=== PATIENT | male | born 1955 | race Caucasian/White ===

== ENCOUNTER → 2017-09-04 | Outpatient (CLI) | payer OTHER ==
[~2017-09-04] MED LIST: ASCO500T3 PO; ATOR-26 PO; CALC-393 PO; CITA40TA4 PO; CODCAP4 PO; MISC1CAP60 PO; NAPR-1169 PO; [UNRECOGNIZED DRUG - CODE] PO
--- NOTE | 2017-09-04 11:03 | DIAGNOSTIC IMAGING REPORT ---
CHEST 2 VIEWS ROUTINE CLINICAL HISTORY: M79.89 Leg [id number] COPD (chronic obstructive pulmonary dis COMPARISON STUDY: 05/31/2016 FINDINGS: Mild chronic interstitial fibrotic change. No focal infiltrate. No significant cardiac enlargement. IMPRESSION: Mild chronic interstitial change. No acute process. The above report was generated using voice recognition software. It may contain grammatical, syntax or spelling errors. Electronically signed by: Lico Eldridge M.D. 09/04/2017 11:02 AM Dictated Date/Time: 09/04/2017 11:01 AM
== END | disposition home or self-care (01) ==
LOC: C.RAD1850 10:51
PROVIDERS: ATTEND Internal Medicine Pulmonary Disease
DX: M79.89 Other specified soft tissue disorders (principal); J44.9 Chronic obstructive pulmonary disease, unspecified

== ENCOUNTER → 2017-11-11 | Outpatient (CLI) | payer OTHER ==
[2017-11-11 12:08] LABS: BASO % 0.5 %; BASO ABS # 0.04 K/uL (0-0.2); EOS % 3.1 %; EOS ABS # 0.24 K/uL (0-0.5); HEMATOCRIT 41.2 % (42-52); HEMOGLOBIN 14.2 g/dL (14.0-18.0); IG# 0.01 K/uL (0.00-0.02); LYMPH % 23.2 %; LYMPH ABS # 1.78 K/uL (1.2-3.4); MEAN CELL VOLUME 92.4 fL (80-100); MEAN CORPUSCULAR HEMOGLOBIN 31.8 pg (25-34); MEAN CORPUSCULAR HGB CONC 34.5 g/dl (32-36); MEAN PLATELET VOLUME 9.3 fL (7.4-10.4); MONO % 8.5 %; MONO ABS # 0.65 K/uL (0.11-0.59); NEUT % 64.6 %; NEUT ABS # 4.96 K/uL (1.4-6.5); PLATELET COUNT 260 K/uL (130-400); RED CELL DISTRIBUTION WIDTH CV 13.5 % (11.5-14.5); RED CELL DISTRIBUTION WIDTH SD 45.6 fL (36.4-46.3); WHITE BLOOD COUNT 7.68 K/uL (4.8-10.8)
[2017-11-11 12:19] LABS: PTT PATIENT 27.1 SECONDS (21.0-31.0)
[2017-11-11 12:38] LABS: ALBUMIN 3.8 gm/dl (3.4-5.0); ALT/SGPT 35 U/L (12-78); BLOOD UREA NITROGEN 21 mg/dl (7-18); CALCIUM 9.2 mg/dl (8.5-10.1); CARBON DIOXIDE 29 mmol/L (21-32); GLUCOSE 97 mg/dl (70-99); POTASSIUM 4.5 mmol/L (3.5-5.1); SODIUM 136 mmol/L (136-145)
[2017-11-11 12:41] LABS: ALKALINE PHOSPHATASE 103 U/L (45-117); AST/SGOT 28 U/L (15-37); TOTAL PROTEIN 7.7 gm/dl (6.4-8.2)
== END | disposition home or self-care (01) ==
LOC: C.LAB1850 10:55
PROVIDERS: ATTEND Internal Medicine Pulmonary Disease
DX: J44.9 Chronic obstructive pulmonary disease, unspecified (principal)

== ENCOUNTER 2018-09-07 14:19 | Inpatient (IN) ==
[2018-09-07] MEDS ORDERED: MoRPHine SULFATE 4 MG/ML 1 ML CARP\\VIAL ONE (14:30)
[2018-09-07] MEDS ORDERED: MoRPHine SULFATE 4 MG/ML 1 ML CARP\\VIAL IV STA ×2 (14:32→15:17)
[2018-09-07] MEDS ORDERED: ADENOSINE IV SOLN 3 MG/ML 2 ML VIAL IV ONE (14:39)
[2018-09-07] MEDS ORDERED: SODIUM CHLORIDE 0.9% 500 ML IV SCH (14:45)
[2018-09-07] MEDS ORDERED: fentaNYL citrate 100 MCG/2 ML VIAL IV STA (14:48)
[2018-09-07] MEDS: ADENOSINE IV SOLN 3 MG/ML 2 ML VIAL IV STA ×2 (14:48→14:49)
[2018-09-07 14:49] LABS: Basophils # (auto) 0.03 K/uL (0-0.2); Basophils % (auto) 0.2 %; Eosinophils # (auto) 0.01 K/uL (0-0.5); Eosinophils % (auto) 0.1 %; Hematocrit (blood only) 43.3 % (42-52); Immature Granulocytes # (auto) 0.04 K/uL (0.00-0.02); Immature Granulocytes % (auto) 0.3 %; Lymphocytes # (auto) 3.18 K/uL (1.2-3.4); Lymphocytes % (auto) 26.3 %; Mean Corpuscular Hgb Conc 34.6 g/dL (32-36); Mean Corpuscular Volume 94.1 fL (80-100); Mean Platelet Volume 9.4 fL (7.4-10.4); Monocytes # (auto) 1.03 K/uL (0.11-0.59); Monocytes % (auto) 8.5 %; Neutrophils # (auto) 7.78 K/uL (1.4-6.5); Neutrophils % (auto) 64.6 %; Platelet Count 289 K/uL (130-400); RDW Coefficient of Variation 13.7 % (11.5-14.5); RDW Standard Deviation 47.3 fL (36.4-46.3); White Blood Count 12.07 K/uL (4.8-10.8)
[2018-09-07 14:57] LABS: Partial Thromboplastin Ratio 0.9; Partial Thromboplastin Time 22.6 Seconds (21.0-31.0); Prothrombin Time 10.1 Seconds (9.0-12.0)
[2018-09-07 15:04] LABS: Alanine Aminotransferase 40 U/L (12-78); Albumin Level 4.2 gm/dl (3.4-5.0); Aspartate Aminotransferase 35 U/L (15-37); BUN Creatinine Ratio 18.1 (10-20); Blood Urea Nitrogen 24 mg/dl (7-18); Calcium 9.6 mg/dl (8.5-10.1); Carbon Dioxide 28 mmol/L (21-32); Chloride 101 mmol/L (98-107); Creatinine Clr Calc Pharmacy 61.4 ml/min; Est GFR (African American) 67.5; Est GFR (Non-African American) 58.2; Glucose 93 mg/dl (70-99); Magnesium 2.1 mg/dl (1.8-2.4); Potassium 4.3 mmol/L (3.5-5.1); Sodium 135 mmol/L (136-145)
--- NOTE | 2018-09-07 15:10 | XRay Report ---
XR hip LT 2-3V w pelvis CLINICAL HISTORY: 62 years-old Male presenting with fall, pain, ?left hip. TECHNIQUE: Single frontal view of the pelvis and frontal and crosstable lateral views of the left hip were obtained. COMPARISON: CT of the abdomen and pelvis from 11/16/2010. FINDINGS: Intertrochanteric fracture of the left femur with up to 6 mm of diastases at the fracture plane. Disp laced lesser trochanteric fracture fragment, which demonstrates 2.8 cm of proximal displacement. The left femoral head remains congruent in the acetabulum. Bony pelvis intact. Right hip joint and right femoral neck grossly intact. IMPRESSION: Intertrochanteric left femur fracture. Electronically signed by: Jun Tran M.D. 09/07/2018 3:09 PM
[2018-09-07 15:13] LABS: Albumin Globulin Ratio 1.1 (0.9-2); Alkaline Phosphatase 111 U/L (45-117); Bilirubin,Total 0.5 mg/dl (0.2-1); Globulin 3.9 gm/dl (2.5-4.0); Total Protein 8.1 gm/dl (6.4-8.2); Troponin I < 0.015 ng/ml (0-0.045)
--- NOTE | 2018-09-07 15:13 | XRay Report ---
XR chest 1V portable CLINICAL HISTORY: 62 years-old Male presenting with fall, tachy. TECHNIQUE: Portable supine AP view of the chest was obtained. COMPARISON: 09/04/[address] from 11/24/2017. FINDINGS: Cardiomediastinal silhouette normal. Lungs are mildly hyperinflated. No focal opacity. No pleural eff usion or pneumothorax. Old posterior lateral left rib fractures again noted. No convincing displaced acute rib fracture. Upper abdomen normal. IMPRESSION: 1. Findings suggest emphysema. No focal infiltrate to suggest pneumonia. Electronically signed by: Jun Tran M.D. 09/07/2018 3:12 PM
[2018-09-07] MEDS ORDERED: HYDROmorphone INJ 0.5 MG/0.5 ML SYR IV STA (15:26)
--- NOTE | 2018-09-07 15:41 | Emergency Department Note ---
Entered by Keyon Christianson acting as a scribe for Castro Noe M.D. History of Present Illness General Chief complaint: Fall Time Seen by Provider: 09/07/18 14:20 Source: patient Mode of arrival: EMS History of Present Illness Provider complaint: hip pain Onset (ago): day(s) (today) Location: hip and left Pain Consistency: + other (fall) Maximum Pain Intensity: 10 Current Pain Intensity: 10 Quality: + other (pain) Associated symptoms: + denies other symptoms (pain elsewhere); no chest pain and no nausea/vomiting (-nausea) The patient is a 62 year old male who presents to the Emergency Room via EMS with complaints of left hip pain secondary to a fall prior to arrival. Per EMS, the patient slipped on ice in a parking lot and landed directly on his left hip. EMS also reports that the patient was not able to dorsiflex his left foot into their hand. The patient denies hitting his head during the fall and denies pain anywhere else. The patient denies any chest pain or dizziness currently as well as prior to his fall. He denies any prior history of breaking his left hip , but admits to breaking his left knee. The patient reports a history of a spinal stenosis, but denies any heart history or use of blood thinners. The patient denies any current nausea. He reports that he has had bronchitis on and off recently and has been on steroids for the past 6 days. The patient admits to being a dormer smoker, but states he quit over 10 years ago. The patient also admits to occasional alcohol use, but states he has not drank in over a month. He also denies any recent travel. Home Medications Home Medications Medication Instructions Recorded Confirmed Type albuterol sulfate [Ventolin HFA] 2 puff INHALATION Q4H PRN 09/07/18 09/07/18 History ascorbic acid (vitamin C) [Vitamin 500 mg PO QAM 09/07/18 09/07/18 History C] atorvastatin 40 mg PO HS 09/07/18 09/07/18 History azithromycin [Zithromax Z-Scout] 250 mg PO QAM 09/07/18 09/07/18 History budesonide 1 mg INHALATION BID 09/07/18 09/07/18 History budesonide-formoterol [Symbicort] 2 puff INHALATION QAM 09/07/18 09/07/18 History citalopram 20 mg PO QAM 09/07/18 09/07/18 History cod liver oil 2 cap PO QAM 09/07/18 09/07/18 History ferrous sulfate 325 mg PO QAM 09/07/18 09/07/18 History ibuprofen 400 mg PO QAM 09/07/18 09/07/18 History ipratropium-albuterol 3 ml INHALATION QID 09/07/18 09/07/18 History methylprednisolone 4 mg PO QAM 09/07/18 09/07/18 History multivitamin 1 tab PO QAM 09/07/18 09/07/18 History nortriptyline 25 mg PO HS 09/07/18 09/07/18 History potassium chloride 20 meq PO QAM 09/07/18 09/07/18 History saw palmetto 1,000 mg PO QAM 09/07/18 09/07/18 History tiotropium bromide [Spiriva 2 puff INHALATION QAM 09/07/18 09/07/18 History Respimat] Allergies Allergy/AdvReac Type Severity Reaction Status Date / Time No Known Allergies Allergy Unknown Verified 09/07/18 15:14 Past Med/Surg History Medical History Anxiety COPD (chronic obstructive pulmonary disease) Hyperlipidemia Surgical History S/P appendectomy 2011 Family History Father Hypertension Social History Feels Safe at Home: Yes Smoking Status: Former smoker Preferred Language: Argentine Review of Systems See HPI for pertinent positives & negatives. and A total of 10 systems reviewed and were otherwise negative Physical Exam Vital Signs Vital Signs - 24 hr 09/07/18 14:15 09/07/18 14:25 09/07/18 15:00 Temperature 36.5 C Temperature Source Oral Sepsis Recent Fever Within 48 Hours No Sepsis New/Unexplained Change in Mental Status No Sepsis Action Taken by Nursing No Action Required Pulse Rate 187 H 109 H Pulse Rate [Apical] 102 H Pulse Rhythm [Apical] Regular Pulse Strength [Apical] Normal Respiratory Rate 26 H 18 Respiratory Effort / Characteristics Non-Labored Spontaneous Respiratory Depth Normal Respiratory Pattern Regular Blood Pressure 149/94 H Blood Pressure [Right Arm] 136/107 H Blood Pressure Mean 112 Blood Pressure Mean [Right Arm] 116 Blood Pressure Position [Right Arm] Lying Pulse Oximetry 96 98 100 Oxygen Delivery Method Nasal Cannula Room Air Oxygen Flow Rate 2 09/07/18 15:01 09/07/18 15:21 09/07/18 15:30 Temperature Temperature Source Sepsis Recent Fever Within 48 Hours Sepsis New/Unexplained Change in Mental Status Sepsis Action Taken by Nursing Pulse Rate 109 H 95 H Pulse Rate [Apical] 101 H Pulse Rhythm [Apical] Regular Pulse Strength [Apical] Normal Respiratory Rate 16 Respiratory Effort / Characteristics Non-Labored Spontaneous Respiratory Depth Normal Respiratory Pattern Blood Pressure 136/107 H 131/83 Blood Pressure [Right Arm] 136/107 H Blood Pressure Mean 116 99 Blood Pressure Mean [Right Arm] 116 Blood Pressure Position [Right Arm] Pulse Oximetry 100 95 99 Oxygen Delivery Method Nasal Cannula Oxygen Flow Rate 2 09/07/18 16:00 09/07/18 16:01 09/07/18 16:30 Temperature Temperature Source Sepsis Recent Fever Within 48 Hours Sepsis New/Unexplained Change in Mental Status Sepsis Action Taken by Nursing Pulse Rate 102 H 100 H 102 H Pulse Rate [Apical] Pulse Rhythm [Apical] Pulse Strength [Apical] Respiratory Rate Respiratory Effort / Characteristics Respiratory Depth Respiratory Pattern Blood Pressure 123/78 119/85 Blood Pressure [Right Arm] Blood Pressure Mean 93 96 Blood Pressure Mean [Right Arm] Blood Pressure Position [Right Arm] Pulse Oximetry 96 93 96 Oxygen Delivery Method Oxygen Flow Rate 09/07/18 17:00 09/07/18 17:01 09/07/18 17:02 Temperature Temperature Source Sepsis Recent Fever Within 48 Hours Sepsis New/Unexplained Change in Mental Status Sepsis Action Taken by Nursing Pulse Rate 101 H 98 H 100 H Pulse Rate [Apical] Pulse Rhythm [Apical] Pulse Strength [Apical] Respiratory Rate Respiratory Effort / Characteristics Respiratory Depth Respiratory Pattern Blood Pressure 101/72 Blood Pressure [Right Arm] Blood Pressure Mean 81 Blood Pressure Mean [Right Arm] Blood Pressure Position [Right Arm] Pulse Oximetry 94 93 95 Oxygen Delivery Method Oxygen Flow Rate 09/07/18 17:30 09/07/18 18:00 09/07/18 18:03 Temperature Temperature Source Sepsis Recent Fever Within 48 Hours Sepsis New/Unexplained Change in Mental Status Sepsis Action Taken by Nursing Pulse Rate 97 H 94 H 98 H Pulse Rate [Apical] Pulse Rhythm [Apical] Pulse Strength [Apical] Respiratory Rate 16 Respiratory Effort / Characteristics Respiratory Depth Respiratory Pattern Blood Pressure 94/63 L 112/68 Blood Pressure [Right Arm] Blood Pressure Mean 73 82 Blood Pressure Mean [Right Arm] Blood Pressure Position [Right Arm] Pulse Oximetry 94 95 Oxygen Delivery Method Oxygen Flow Rate GENERAL: Awake, alert, appears uncomfortable. HENT: Normocephalic, atraumatic. EYES: Normal conjunctiva. Sclera non-icteric. NECK: Supple. No nuchal rigidity. RESPIRATORY: Clear to auscultation. No wheezes. Normal respiratory effort. CARDIAC: Tachycardic. Normal rhythm. Extremities warm and well perfused. GI: Soft, non-distended. No tenderness to palpation. No rebound or guarding. RECTAL: Deferred. MUSCULOSKELETAL: Atraumatic. Chest examination reveals no tenderness. There is no CVA tenderness to palpation. LOWER EXTREMITIES: Calves are equal size bilaterally. No edema. Significant left hip pain and tenderness - externally rotated. Intact lower distal sensation , 2+ DP pulse. NEURO: Normal sensorium. No sensory or motor deficits noted. No facial droop. SKIN: Warm and dry. No rash or jaundice noted. Course 1419: Past medical records reviewed. The patient was evaluated in room B7, and a complete history and physical examination were performed. 1438: Adenosine was administered to the patient in order to obtain a second EKG. [facility]. 1529: I reviewed the patient's case with Dr. Ulloa [facility]. He will evaluate the patient for further management. 1642: I reviewed the patient's case with Dr. Carbone [facility]. Consultations [facility] Time: 15:29 Administered Medications Discontinued Medications Adenosine (Adenosine) 6 mg IV NOW STA Stop: 09/07/18 14:40 Last Admin: 09/07/18 14:48 Dose: 6 mg Hydromorphone HCl (Dilaudid) 0.5 mg IV NOW STA Stop: 09/07/18 15:27 Last Admin: 09/07/18 15:29 Dose: 0.5 mg Sodium Chloride (Nss) 500 mls @ 999 mls/hr IV .Q31M VICENTE Stop: 09/07/18 15:15 Last Infusion: 09/07/18 15:21 Dose: 0 mls/hr Admin: 09/07/18 14:49 Dose: 999 mls/hr Morphine Sulfate (Morphine Sulfate) Confirm Administered Dose 4 mg .ROUTE .STK- MED ONE Stop: 09/07/18 14:31 Last Admin: 09/07/18 14:48 Dose: 4 mg Morphine Sulfate (Morphine Sulfate) 4 mg IV NOW STA Stop: 09/07/18 14:33 Last Admin: 09/07/18 14:53 Dose: 4 mg Morphine Sulfate (Morphine Sulfate) 4 mg IV NOW STA Stop: 09/07/18 15:18 Last Admin: 09/07/18 15:20 Dose: Not Given Medical Decision Making Differential Diagnosis Differential diagnosis: Etiologies such as premature contractions, electrolyte abnormality, cardiac dysrhythmia, thyroid dysfunction, pulmonary embolism, infection, gastrointestinalfracture, dislocation, intra-abdominal, pneumothorax, intrathoracic , intracranial, neurologic, as well as other traumatic pathologies were entertained Medical Records Attestation: I reviewed the patient's medical records. Home Medications Current Medication List: was personally reviewed by me Laboratory Data Attestation: I reviewed the patient's lab results. Result diagrams: 09/07/18 14:35 09/07/18 14:35 Lab Results 09/07/18 09/07/18 09/07/18 Range/Units 14:35 14:35 14:35 WBC 12.07 H (4.8-10.8) K/uL RBC 4.60 L (4.7-6.1) M/uL Hgb 15.0 (14.0-18.0) g/dL Hct 43.3 (42-52) % MCV 94.1 (80-100) fL MCH 32.6 (25-34) pg MCHC 34.6 (32-36) g/dL RDW Std Deviation 47.3 H (36.4-46.3) fL RDW Coeff of Damon 13.7 (11.5-14.5) % Plt Count 289 (130-400) K/uL MPV 9.4 (7.4-10.4) fL Immature Gran % (Auto) 0.3 % Neut % (Auto) 64.6 % Lymph % (Auto) 26.3 % [place] % (Auto) 8.5 % Eos % (Auto) 0.1 % Baso % (Auto) 0.2 % Immature Gran # (Auto) 0.04 H (0.00-0.02) K/uL Neut # (Auto) 7.78 H (1.4-6.5) K/uL Lymph # (Auto) 3.18 (1.2-3.4) K/uL [place] # (Auto) 1.03 H (0.11-0.59) K/uL Eos # (Auto) 0.01 (0-0.5) K/uL Baso # (Auto) 0.03 (0-0.2) K/uL PT 10.1 (9.0-12.0) Seconds INR 1.0 (0.9-1.1) APTT 22.6 (21.0-31.0) Seconds PTT Ratio 0.9 Sodium 135 L (136-145) mmol/L Potassium 4.3 (3.5-5.1) mmol/L Chloride 101 (98-107) mmol/L Carbon Dioxide 28 (21-32) mmol/L Anion Gap 6.0 (3-11) BUN 24 H (7-18) mg/dl Creatinine 1.32 (0.6-1.4) mg/dl Est Cr Clr Drug Dosing 61.4 ml/min Est GFR ( Amer) 67.5 Est GFR (Non-Af Amer) 58.2 BUN/Creatinine Ratio 18.1 (10-20) Glucose 93 (70-99) mg/dl Calcium 9.6 (8.5-10.1) mg/dl Magnesium 2.1 (1.8-2.4) mg/dl Total Bilirubin 0.5 (0.2-1) mg/dl AST 35 (15-37) U/L ALT 40 (12-78) U/L Alkaline Phosphatase 111 (45-117) U/L Troponin I < 0.015 (0-0.045) ng/ml Total Protein 8.1 (6.4-8.2) gm/dl Albumin 4.2 (3.4-5.0) gm/dl Globulin 3.9 (2.5-4.0) gm/dl Albumin/Globulin Ratio 1.1 (0.9-2) TSH 1.210 (0.300-4.500) uIu/ml Blood Type Antibody Screen 09/07/18 Range/Units 14:35 WBC (4.8-10.8) K/uL RBC (4.7-6.1) M/uL Hgb (14.0-18.0) g/dL Hct (42-52) % MCV (80-100) fL MCH (25-34) pg MCHC (32-36) g/dL RDW Std Deviation (36.4-46.3) fL RDW Coeff of Damon (11.5-14.5) % Plt Count (130-400) K/uL MPV (7.4-10.4) fL Immature Gran % (Auto) % Neut % (Auto) % Lymph % (Auto) % [place] % (Auto) % Eos % (Auto) % Baso % (Auto) % Immature Gran # (Auto) (0.00-0.02) K/uL Neut # (Auto) (1.4-6.5) K/uL Lymph # (Auto) (1.2-3.4) K/uL [place] # (Auto) (0.11-0.59) K/uL Eos # (Auto) (0-0.5) K/uL Baso # (Auto) (0-0.2) K/uL PT (9.0-12.0) Seconds INR (0.9-1.1) APTT (21.0-31.0) Seconds PTT Ratio Sodium (136-145) mmol/L Potassium (3.5-5.1) mmol/L Chloride (98-107) mmol/L Carbon Dioxide (21-32) mmol/L Anion Gap (3-11) BUN (7-18) mg/dl Creatinine (0.6-1.4) mg/dl Est Cr Clr Drug Dosing ml/min Est GFR ( Amer) Est GFR (Non-Af Amer) BUN/Creatinine Ratio (10-20) Glucose (70-99) mg/dl Calcium (8.5-10.1) mg/dl Magnesium (1.8-2.4) mg/dl Total Bilirubin (0.2-1) mg/dl AST (15-37) U/L ALT (12-78) U/L Alkaline Phosphatase (45-117) U/L Troponin I (0-0.045) ng/ml Total Protein (6.4-8.2) gm/dl Albumin (3.4-5.0) gm/dl Globulin (2.5-4.0) gm/dl Albumin/Globulin Ratio (0.9-2) TSH (0.300-4.500) uIu/ml Blood Type O Positive Antibody Screen NEGATIVE Imaging Data Radiologist's Impression: Radiology results as stated below per my review and the radiologist's interpretation: XR chest 1V portable CLINICAL HISTORY: 62 years-old Male presenting with fall, tachy. TECHNIQUE: Portable supine AP view of the chest was obtained. COMPARISON: 09/04/[address] from 11/24/2017. FINDINGS: Cardiomediastinal silhouette normal. Lungs are mildly hyperinflated. No focal opacity. No pleural effusion or pneumothorax. Old posterior lateral left rib fractures again noted. No convincing displaced acute rib fracture. Upper abdomen normal. IMPRESSION: 1. Findings suggest emphysema. No focal infiltrate to suggest pneumonia. Electronically signed by: Jun Tran M.D. 09/07/2018 3:12 PM XR hip LT 2-3V w pelvis CLINICAL HISTORY: 62 years-old Male presenting with fall, pain, ?left hip. TECHNIQUE: Single frontal view of the pelvis and frontal and crosstable lateral views of the left hip were obtained. COMPARISON: CT of the abdomen and pelvis from 11/16/2010. FINDINGS: Intertrochanteric fracture of the left femur with up to 6 mm of diastases at the fracture plane. Displaced lesser trochanteric fracture fragment, which demonstrates 2.8 cm of proximal displacement. The left femoral head remains congruent in the acetabulum. Bony pelvis intact. Right hip joint and right femoral neck grossly intact. IMPRESSION: Intertrochanteric left femur fracture. Electronically signed by: Jun Tran M.D. 09/07/2018 3:09 PM ECG Data Attestation: I personally reviewed and interpreted this ECG as follows: Indication: tachycardia Rate (beats per minute): 178 Rhythm: SVT Findings: + nonspecific-ST abn and + PVC; no ST elevation Additional Comments: ECG #2: Sinus rhythm, rate of 88 ECG #3 Sinus tachycardia, rate of 116 Blood Pressure Blood Pressure Findings: Elevated blood pressure Blood Pressure Disposition: elevated BP felt to be situational MDM Narrative 63-year-old gentleman presenting via EMS after a fall today at work. Does have a history of hyperlipidemia but no use of blood thinners or antiplatelets. Complaining of pain predominantly left hip rating to the left mid thigh. Denies pain in his knee ankle or lower leg. Denies striking his head. Recently on treatment for bronchitis with Medrol Dosepak and azithromycin. Noted to be extremely tachycardic upon arrival and appears to be SVT on initial EKG. Pain medicine given and vagal maneuvers attempted without significant change in the heart rate. No significant cardiac history or chest pain reported. Blood pressure is stable. Discussed with the patient and verbal consent to proceed with a Adenosine for further differentiation appears to be sinus tach and after 6 mg transition to a sinus tachycardia. Unsure if is secondary to his recent steroids for bronchitis and the pain as he has no history. Troponin completed. Doubt this is PE. Denies any presyncopal episode. X-rays obtained basic labs were completed showing a left intertrochanteric hip fracture. No evidence of pneumonia. No significant laboratory abnormality with a negative troponin and normal TSH. Wonder if his pain caused him to go into the SVT. Given some doses of IV morphine and Dilaudid here. No recurrence of SVT while in the department and again a negative troponin. Placed a call to orthopedics and the hospitalist for admission for repair of his hip fracture. Impression & Plan Closed fracture of left hip, Sustained SVT, Fall Discharge Plan Visit Data Chief Complaint: Fall Other Complaint: Leg Injury/Pain ED Provider: Castro Noe Discharge Problem: Closed fracture of left hip, Sustained SVT, Fall Patient Disposition: Admitted As Inpatient Discharge Instructions Interventions: ED Discharge Assessment Last Done: 09/07/18 18:03 The brown's documentation has been prepared under my direction and personally reviewed by me in its entirety. I confirm that the note above accurately reflects all work, treatment, procedures, and medical decision making performed by me.
--- NOTE | 2018-09-07 17:58 | History & Physical Report ---
Date of Service September 07, 2018 Assessment & Plan (1) Closed left femoral fracture: Due to mechanical fall. No concern for syncope or loss of consciousness. De Jenna-operative risk of MACE is 0.6% using ASA Class 3. Prior to injury, he had good exercise tolerance without any concerning cardiac symptoms ( lightheadedness, chest pain). He has had anesthesia without complications in the past. No prior RBC transfusions. Is on the tail end of a mild COPD exacerbation, but lungs sound clear without wheezing and with good air movement. From an internal medicine standpoint, he is cleared for surgery. - Orthopedics consult - Pain control - NPO @ midnight in case of surgery (2) SVT (supraventricular tachycardia): Had episode of SVT on admission which was broken with adenosine. Possibly caused by high adrenergic state from broken hip. No prior history of SVTs. - Telemetry - If recurs, will get cardiology consult (3) COPD (chronic obstructive pulmonary disease): No known PFTs. Is on the tail end of a mild COPD exacerbation. - Continue home inhalers - Continue 1 final day of steroids and antibiotics (4) Leukocytosis: Mild. Likely due to steroids and mild leukemoid reaction from fracture. No focal signs/symptoms of infection. - Monitor (5) CKD (chronic kidney disease) stage 2, GFR 60-89 ml/min: Baseline Cr appears to be ~1.2-1.3 with GFR ~60. - Monitor Cr while inpatient - Renally-dose meds (6) Anxiety: No current issues. - Continue home citalopram and nortriptyline (technically this is for chronic back pain) (7) Hyperlipidemia: - Continue home statin (8) DVT prophylaxis: SCDs - Until after surgery History of Present Illness Primary Care Provider: Neto Herrera 62yo M w/ hx of COPD who presents for left broken hip. Patient was in his usual state of health apart from a mild COPD exacerbation when he fell on some ice at work and sustained a left intertrochanteic femur fracture. Per patient, he did not have any prodrome, dizziness, or other symptoms and just slipped. He was taking small steps, but still wasn't able to catch himself and had immediate pain on impact. A coworker called the ambulance. He reports he has had some extra sputum production in the last week, and has been on a course of azithromycin and steroids. He is on day 6 for this. Otherwise, is in his normal state of health and denies fevers/chills, chest pain , shortness of breath, abdominal pain, nausea, or vomiting. Allergies Allergy/AdvReac Type Severity Reaction Status Date / Time No Known Allergies Allergy Unknown Verified 09/07/18 15:14 Home Medications Home Medications Medication Instructions Recorded Confirmed Type albuterol sulfate [Ventolin HFA] 2 puff INHALATION Q4H PRN 09/07/18 09/07/18 History ascorbic acid (vitamin C) [Vitamin 500 mg PO QAM 09/07/18 09/07/18 History C] atorvastatin 40 mg PO HS 09/07/18 09/07/18 History azithromycin [Zithromax Z-Scout] 250 mg PO QAM 09/07/18 09/07/18 History budesonide 1 mg INHALATION BID 09/07/18 09/07/18 History budesonide-formoterol [Symbicort] 2 puff INHALATION QA 09/07/18 09/07/18 History citalopram 20 mg PO QAM 09/07/18 09/07/18 History cod liver oil 2 cap PO QAM 09/07/18 09/07/18 History ferrous sulfate 325 mg PO QAM 09/07/18 09/07/18 History ibuprofen 400 mg PO QAM 09/07/18 09/07/18 History ipratropium-albuterol 3 ml INHALATION QID 09/07/18 09/07/18 History methylprednisolone 4 mg PO QAM 09/07/18 09/07/18 History multivitamin 1 tab PO QAM 09/07/18 09/07/18 History nortriptyline 25 mg PO 09/07/18 09/07/18 History potassium chloride 20 meq PO QAM 09/07/18 09/07/18 History saw palmetto 1,000 mg PO QAM 09/07/18 09/07/18 History tiotropium bromide [Spiriva 2 puff INHALATION QAM 09/07/18 09/07/18 History Respimat] Past Med/Surg History Medical History Anxiety COPD (chronic obstructive pulmonary disease) Hyperlipidemia Surgical History S/P appendectomy 2011 Family History Father Hypertension Social History Feels Safe at Home: Yes Smoking Status: Former smoker Preferred Language: Persian Review of Systems Constitutional: no fever, no chills and no sweats Eyes: no diplopia Ear, Nose, Mouth, Throat: no ear trauma, no nasal discharge and no dental pain Respiratory: no cough, no chest congestion and no dyspnea Cardiovascular: no chest pain, no dyspnea on exertion, no palpitations and no syncope Gastrointestinal: no abdominal pain, no belching, no constipation, no diarrhea/ loose stools, no blood in stools and no melena Musculoskeletal: + joint pain (Left hip); no back pain and no muscle weakness Integumentary: no rash, no skin ulcer and no erythema Neurologic: no generalized weakness, no loss of sensation, no numbness and no paresthesia Psychiatric: no depression and no anxiety Endocrine: no fatigue, no polydipsia and no polyphagia Physical Exam 2 Vital Signs (Past 24 Hours): Last Vital Signs Temp 36.5 C 09/07/18 14:15 Pulse 98 H 09/07/18 17:01 Resp 16 09/07/18 15:21 BP 101/72 09/07/18 17:01 Pulse Ox 93 09/07/18 17:01 Constitutional: WD/WN, vitals as above Eyes: EOM intact bilaterally; no conjunctival abnormality ENMT: external ear and nose normal, oropharynx normal Neck: trachea midline, no thyromegaly normal visual inspection Respiratory: normal respiratory effort, lungs clear to auscultation no respiratory distress Cardiovascular: RRR, no murmur, no edema Gastrointestinal (Abdomen): Inspection/Auscultation: abdomen normal to inspection; abdomen not distended Musculoskeletal: no cyanosis or clubbing, extremities motor strength 5/5 Head/Neck/Chest: normocephalic and head atraumatic Hip: + hip abnormal to inpsection and + deformity Skin: no rashes, warm and dry Neurologic: moves all extremities and awake Psychiatric: Orientation: alert, oriented to person and cooperative
--- NOTE | 2018-09-07 18:31 | XRay Report ---
XR femur LT 2V routine CLINICAL HISTORY: Left hip fracture. COMPARISON: Left hip radiographs performed earlier today. FINDINGS: Healed proximal left tibial fracture with cannulated screw is noted. There is no acute fra cture the mid to distal left femur or the proximal left tibia or fibula. The intertrochanteric fractu re shown on prior exam was not imaged on this exam. IMPRESSION: No acute fracture of the mid to distal left femur. Electronically signed by: Robbie Alvarez M.D. 09/07/2018 6:30 PM
[2018-09-07] MEDS ORDERED: MoRPHine SULFATE 10 MG/ML CARP/VIAL IV PRN (18:48)
[2018-09-07] MEDS ORDERED: ALBUT/IPRATROP 3MG/0.5MG NEB 3 ML VIAL INH PRN (18:48)
[2018-09-07] MEDS ORDERED: ACETAMINOPHEN 325 MG TAB PO PRN (18:48)
[2018-09-07] MEDS ORDERED: ONDANSETRON INJ 2 MG/ML 2 ML VIAL IV PRN (18:48)
[2018-09-07] MEDS: NORTRIPTYLINE HCL 25 MG CAP PO SCH (20:52)
[2018-09-07] MEDS: methylPREDNISolone 4 MG TAB PO SCH (20:53)
[2018-09-07] MEDS: ATORVASTATIN 40 MG TAB PO SCH (20:53)
[2018-09-07] MEDS: HYDROmorphone INJ 0.5 MG/0.5 ML SYR IV PRN (22:15)
[2018-09-08] MEDS: HYDROmorphone INJ 0.5 MG/0.5 ML SYR IV PRN ×5 (01:26→21:31)
[2018-09-08 05:50] LABS: Hematocrit (blood only) 36.9 % (42-52); Hemoglobin 12.9 g/dL (14.0-18.0); Mean Corpuscular Volume 95.1 fL (80-100); Platelet Count 232 K/uL (130-400); RDW Coefficient of Variation 13.8 % (11.5-14.5); RDW Standard Deviation 47.3 fL (36.4-46.3); Red Blood Count 3.88 M/uL (4.7-6.1); White Blood Count 10.69 K/uL (4.8-10.8)
[2018-09-08 06:28] LABS: BUN Creatinine Ratio 20.4 (10-20); Calcium 8.5 mg/dl (8.5-10.1); Creatinine Clr Calc Pharmacy 72.4 ml/min; Est GFR (African American) 82.3; Magnesium 2.1 mg/dl (1.8-2.4); Potassium 4.3 mmol/L (3.5-5.1)
[2018-09-08] MEDS ORDERED: BUPIVACAINE 0.5 % 5 MG/1 ML PF 10ML VIAL ONE ×2 (07:22→11:56)
[2018-09-08] MEDS: CITALOPRAM 20 MG TAB PO SCH (08:08)
[2018-09-08] MEDS: methylPREDNISolone 4 MG TAB PO SCH (08:08)
[2018-09-08] MEDS: TIOTROPIUM BROMIDE 5 PUFF/90 MCG INH INH SCH (08:09)
[2018-09-08] MEDS: BUDESONIDE/FORMOTEROL FUMARATE 160/4.5 60 PUFFS/INHALER INH SCH (08:09)
[2018-09-08] MEDS ORDERED: LIDOCAINE HCL 2% 2 ML VIAL/AMP(20MG/ML) INFIL ONE (08:12)
[2018-09-08] MEDS ORDERED: MIDAZOLAM HCL 1 MG/ML 2ML VIAL ONE ×2 (08:12)
[2018-09-08] MEDS ORDERED: PROPOFOL IV EMULSION 10 MG/ML 20 ML VIAL IV ONE ×2 (08:12→13:04)
[2018-09-08] MEDS ORDERED: ePHEDrine sulfate 50 MG/ML SYR ONE (08:12)
[2018-09-08] MEDS ORDERED: fentaNYL citrate 100 MCG/2 ML VIAL ONE (08:13)
[2018-09-08] MEDS ORDERED: AZITHROMYCIN 250 MG TAB PO SCH (09:00)
--- NOTE | 2018-09-08 09:23 | Anesthesiology Consultation ---
Date of Service September 08, 2018 Assessment & Plan (1) Encounter for pre-operative examination: Chart Review Chart Review: Acceptable Risk for Surgery and Patient NOT seen in Pre Admission Testing Consults Requested none Additional Notes 62 yo male who presented 09/07/18 after mechanical fall on ice with left hip fracture. PMH significant for COPD, chronic kidney disease, HLD, anxiety, and spinal stenosis. Patient does not take anticoagulants at baseline and his presenting lab values where appropriate. Patient did develop an episode of SVT in the ED that resolved with adenosine. Prior to this, the patient had no prior history of SVT or other cardiac abnormalities. Of note, patient also had a COPD exacerbation last week for which he completed a course of antibiotics and steroids today. History Surgery Operation Date: 09/08/18 08:50 Proposed Procedures p Left Hip Trochanteric Femoral Nail Lucila - Rene Del Rio DO Height/Weight Height: 5 ft 10 in Weight: 74.3 kg Allergies Allergy/AdvReac Type Severity Reaction Status Date / Time No Known Allergies Allergy Unknown Verified 09/07/18 15:14 Medications Home Medications Medication Instructions Recorded Confirmed Last Taken albuterol sulfate [Ventolin HFA] 2 puff INHALATION Q4H PRN 09/07/18 09/07/18 06:00 ascorbic acid (vitamin C) [Vitamin 500 mg PO QAM 09/07/18 09/07/18 09/07/18 C] atorvastatin 40 mg PO HS 09/07/18 09/07/18 09/06/18 azithromycin [Zithromax Z-Scout] 250 mg PO QAM 09/07/18 09/07/18 09/07/18 budesonide 1 mg INHALATION BID 09/07/18 09/07/18 09/07/18 budesonide-formoterol [Symbicort] 2 puff INHALATION QAM 09/07/18 09/07/18 citalopram 20 mg PO QAM 09/07/18 09/07/18 09/07/18 cod liver oil 2 cap PO QAM 09/07/18 09/07/18 09/07/18 ferrous sulfate 325 mg PO QAM 09/07/18 09/07/18 09/07/18 ibuprofen 400 mg PO QAM 09/07/18 09/07/18 Unknown ipratropium-albuterol 3 ml INHALATION QID 09/07/18 09/07/18 09/07/18 06:00 methylprednisolone 4 mg PO QAM 09/07/18 09/07/18 09/07/18 multivitamin 1 tab PO QAM 09/07/18 09/07/18 09/07/18 nortriptyline 25 mg PO HS 09/07/18 09/07/18 09/06/18 potassium chloride 20 meq PO QAM 09/07/18 09/07/18 09/07/18 saw palmetto 1,000 mg PO QAM 09/07/18 09/07/18 09/07/18 tiotropium bromide [Spiriva 2 puff INHALATION QAM 09/07/18 09/07/18 09/07/18 Respimat] Active Medications Generic Name Dose Route Start Last Admin Trade Name Freq PRN Reason Stop Dose Admin Albuterol 3 ml 09/07/18 18:48 09/07/18 20:57 Duoneb INH 10/07/18 18:47 3 ml QIDR PRN Administration Shortness Of Breath Or Wheezing Atorvastatin Calcium 40 mg 09/07/18 21:00 09/07/18 20:53 Lipitor PO 10/07/18 20:59 40 mg HS VICENTE Administration Azithromycin 250 mg 09/08/18 09:00 09/08/18 08:08 Zithromax PO 09/09/18 08:59 250 mg QAM VICENTE Administration Budesonide/Formoterol Fumarate 2 puffs 09/08/18 09:00 09/08/18 08:09 Symbicort 160mcg/4.5mcg INH 10/08/18 08:59 2 puffs QAM VICENTE Administration Citalopram Hydrobromide 20 mg 09/08/18 09:00 09/08/18 08:08 Celexa PO 10/08/18 08:59 20 mg QAM VICENTE Administration Hydromorphone HCl 0.5 mg 09/07/18 19:42 09/08/18 08:10 Dilaudid IV 09/21/18 19:41 0.5 mg Q2H PRN Administration Pain Morphine Sulfate 6 mg 09/07/18 18:48 09/07/18 19:24 Morphine Sulfate IV 09/21/18 18:47 6 mg Q4H PRN Administration Pain Nortriptyline HCl 25 mg 09/07/18 21:00 09/07/18 20:52 Pamelor PO 10/07/18 20:59 25 mg HS VICENTE Administration Tiotropium [place] 1 puffs 09/08/18 09:00 09/08/18 08:09 Spiriva INH 10/08/18 08:59 1 puffs QAM VICENTE Administration Past Medical History Medical History Closed fracture of left hip (Acute) Sustained SVT (Acute) single episode of SVT in ED on 09/07/18 after presenting with hip fracture. Resolved after treatment with adenosine CKD (chronic kidney disease) stage 2, GFR 60-89 ml/min (Chronic) Hyperlipidemia (Chronic) Anxiety (Chronic) COPD (chronic obstructive pulmonary disease) (Chronic) Recent exacerbation prior to this admission. Just completed a course of antibiotics and steriods Spinal stenosis (Chronic) Past Family History Family History Father Hypertension Past Surgical History Surgical History S/P appendectomy 2010 Social History Smoking Status: Former smoker Do You Dip or Chew Tobacco: No Hx Alcohol Use: Yes Alcohol type: beer alcohol intake frequency: other Alcohol Intake Frequency Comment: Once in awhile Hx Substance Use: No Physical Exam Vital Signs Last Vital Signs Temp 36.5 C 09/08/18 07:52 Pulse 89 09/08/18 07:52 Resp 20 09/08/18 07:52 BP 115/71 09/08/18 07:52 Pulse Ox 95 09/08/18 07:52 Testing Electrocardiogram Date: 09/07/18 Findings: + ST @ (116) Sinus tachycardia Otherwise normal ECG When compared with ECG of 07-SEP-2018 14:44, (unconfirmed) Premature ventricular complexes are no longer Present Chest X-Ray Date: 09/07/18 IMPRESSION: 1. Findings suggest emphysema. No focal infiltrate to suggest pneumonia. Laboratory Results 09/08/18 05:35 09/08/18 05:35 Blood Type O Positive 09/07/18 14:35 Antibody Screen NEGATIVE 09/07/18 14:35 PT 10.1 Seconds (9.0-12.0) 09/07/18 14:35 INR 1.0 (0.9-1.1) 09/07/18 14:35 APTT 22.6 Seconds (21.0-31.0) 09/07/18 14:35
--- NOTE | 2018-09-08 10:10 | History & Physical Bridge Note ---
Date of Service September 08, 2018 History & Physical Bridge Note I have examined the patient, reviewed the History & Physical and in the interval since the performance of the History & Physical I have noted the following changes of clinical significance: no changes noted
--- NOTE | 2018-09-08 10:15 | Orthopedic Consultation ---
Date of Consultation September 08, 2018 Assessment & Plan (1) Closed fracture of left hip: The patient is a 62yo male with displaced left intertrochanteric hip fracture sustained after a fall from standing height. The patient was medically stabilized on 09/08/2018. I indicated the patient for left hip cephalomedullary nail. The patient was informed of the risks and benefits of surgery, which include but not limited to infection, bleeding, blood clots, damage to nerves, vessels, bone and soft tissue, dislocation, leg length discrepancy, malunion, nonunion, failure of the implants, need for additional surgery and . The patient collectively chose to proceed with surgical intervention and informed consent was obtained. -Antibiotics precision structural metal fitter to the OR -N.p.o. -Hold anticoagulation -Bedrest History of Present Illness Reason for Consultation: Left hip fracture Attending Physician: Richard Dias MD, PhD, [facility] History of Present Illness The patient is a 62-year-old male who sustained a mechanical fall from standing height on ice 1 day prior on 09/07/2018. Subsequently seen at [facility] emergency department for left hip pain and inability to ambulate. The patient was diagnosed with left hip fracture and a consult was placed to orthopedics for further inpatient management. Patient denies hitting head, denies syncope, or loss of consciousness. Patient denies pain prior to falling. Patient denies numbness and tingling in left lower extremity. Allergies Allergy/AdvReac Type Severity Reaction Status Date / Time No Known Allergies Allergy Unknown Verified 09/07/18 15:14 Home Medications Home Medications Medication Instructions Recorded Confirmed Type albuterol sulfate [Ventolin HFA] 2 puff INHALATION Q4H PRN 09/07/18 09/07/18 History ascorbic acid (vitamin C) [Vitamin 500 mg PO QAM 09/07/18 09/07/18 History C] atorvastatin 40 mg PO HS 09/07/18 09/07/18 History azithromycin [Zithromax Z-Scout] 250 mg PO QAM 09/07/18 09/07/18 History budesonide 1 mg INHALATION BID 09/07/18 09/07/18 History budesonide-formoterol [Symbicort] 2 puff INHALATION QAM 09/07/18 09/07/18 History citalopram 20 mg PO QAM 09/07/18 09/07/18 History cod liver oil 2 cap PO QAM 09/07/18 09/07/18 History ferrous sulfate 325 mg PO QAM 09/07/18 09/07/18 History ibuprofen 400 mg PO QAM 09/07/18 09/07/18 History ipratropium-albuterol 3 ml INHALATION QID 09/07/18 09/07/18 History methylprednisolone 4 mg PO QAM 09/07/18 09/07/18 History multivitamin 1 tab PO QAM 09/07/18 09/07/18 History nortriptyline 25 mg PO HS 09/07/18 09/07/18 History potassium chloride 20 meq PO QAM 09/07/18 09/07/18 History saw palmetto 1,000 mg PO QAM 09/07/18 09/07/18 History tiotropium bromide [Spiriva 2 puff INHALATION QAM 09/07/18 09/07/18 History Respimat] Patient History Medical History Closed fracture of left hip (Acute) Sustained SVT (Acute) single episode of SVT in ED on 09/07/18 after presenting with hip fracture. Resolved after treatment with adenosine CKD (chronic kidney disease) stage 2, GFR 60-89 ml/min (Chronic) Hyperlipidemia (Chronic) Anxiety (Chronic) COPD (chronic obstructive pulmonary disease) (Chronic) Recent exacerbation prior to this admission. Just completed a course of antibiotics and steriods Spinal stenosis (Chronic) Surgical History S/P appendectomy 2010 Family History Father Hypertension Social History Current Living Situation: Significant Other Other Information That Helps Us Care for You: No Feels Safe at Home: Yes Safety Concerns: Feels Safe At This Time Smoking Status: Former smoker Do You Dip or Chew Tobacco: No Hx Alcohol Use: Yes Alcohol type: beer Alcohol Intake Frequency: other Hx Substance Use: No Beliefs That Will Affect Care: None Communication Ability: Effective Review of Systems Constitutional: as per Subjective / HPI Physical Exam 2 Vital Signs (Past 24 Hours): Last Vital Signs Temp 36.5 C 09/08/18 07:52 Pulse 89 09/08/18 07:52 Resp 20 09/08/18 07:52 BP 115/71 09/08/18 07:52 Pulse Ox 95 09/08/18 07:52 Physical Exam: LLE NVSI +EHL/FHL/TA/GS SILT grossly, +2 DP pulse, compartments soft NT, skin cdi. Constitutional: WD/WN, vitals as above Results & Data Diagnostic Findings XR hip LT 2-3V w pelvis CLINICAL HISTORY: 62 years-old Male presenting with fall, pain, ?left hip. TECHNIQUE: Single frontal view of the pelvis and frontal and crosstable lateral views of the left hip were obtained. COMPARISON: CT of the abdomen and pelvis from 11/16/2010. FINDINGS: Intertrochanteric fracture of the left femur with up to 6 mm of diastases at the fracture plane. Displaced lesser trochanteric fracture fragment, which demonstrates 2.8 cm of proximal displacement. The left femoral head remains congruent in the acetabulum. Bony pelvis intact. Right hip joint and right femoral neck grossly intact. IMPRESSION: Intertrochanteric left femur fracture. XR femur LT 2V routine CLINICAL HISTORY: Left hip fracture. COMPARISON: Left hip radiographs performed earlier today. FINDINGS: Healed proximal left tibial fracture with cannulated screw is noted. There is no acute fracture the mid to distal left femur or the proximal left tibia or fibula. The intertrochanteric fracture shown on prior exam was not imaged on this exam. IMPRESSION: No acute fracture of the mid to distal left femur. _ (1) Closed fracture of left hip Encounter type: initial encounter Fracture healing: Qualified Code(s): S72.002A - Fracture of unspecified part of neck of left femur, initial encounter for closed fracture
[2018-09-08] MEDS ORDERED: CEFAZOLIN 2,000 MG/15 ML IV PUSH IV ONE (11:35)
[2018-09-08] MEDS ORDERED: CEFAZOLIN 2000MG 2,000 MG/15 ML SYR IV SCH (11:45)
[2018-09-08] MEDS ORDERED: PHENYLEPHRINE HCL 10 MG/ML VIAL ONE (12:52)
[2018-09-08] MEDS ORDERED: BUPIVACAINE/EPINEPHRINE 0.5% MPF 1:200,000 30 ML VIAL ONE (13:08)
--- NOTE | 2018-09-08 13:27 | Post Operative Brief Note ---
Immediate Post Op Note v1 Date of Surgery September 08, 2018 Pre & Post Diagnosis Operation Date: 09/08/18 08:50 Pre-Op Diagnosis: Left Intertrochanteric Femur Fracture Post-Op Diagnosis: Left Intertrochanteric Femur Fracture Procedure Operation Date: 09/08/18 08:50 Actual Procedures p Trochanteric Nailing Left Hip(Left) - Rene Del Rio DO Surgeon Rene Del Rio DO Social Work Nurse none Estimated Blood Loss 55 Findings Consistent with Post-Op Diagnosis Fluids 700 Specimens none Drains Mederos Catheter Anesthesia Type Spinal MAC Complications none Disposition Disposition: Recovery Room Overlapping Procedure I was present for: the critical portions of procedure. I was immediately available: during the entire case. Back up surgeon: was not required during procedure.
[2018-09-08] MEDS ORDERED: ATROPINE SULFATE 0.1 MG/ML 10ML SYR IV PRN (13:45)
[2018-09-08] MEDS ORDERED: ePHEDrine sulfate 50 MG/ML AMP IV PRN (13:45)
[2018-09-08] MEDS ORDERED: PHENYLEPHRINE 100MCG/ML 5ML SYR IV PRN (13:45)
[2018-09-08] MEDS ORDERED: fentaNYL citrate 100 MCG/2 ML VIAL IV PRN (13:45)
[2018-09-08] MEDS ORDERED: ONDANSETRON INJ 2 MG/ML 2 ML VIAL IV PRN (13:45)
[2018-09-08] MEDS ORDERED: LABETALOL HCL IV 5 MG/ML 20ML IV PRN (13:45)
--- NOTE | 2018-09-08 14:11 | Anesthesiology Progress Note ---
Date of Service September 08, 2018 Anesthesia Post Procedure Vital Signs Vital Signs: Temp Pulse Pulse Resp BP BP BP 09/08/18 14:00 85 15 120/68 09/08/18 13:50 87 13 104/74 09/08/18 13:40 87 13 108/76 09/08/18 13:33 36.5 C 91 H 13 95/61 L 09/08/18 11:18 36.5 C 87 18 128/75 09/08/18 07:52 36.5 C 89 20 115/71 09/08/18 04:43 36.6 C 87 16 125/73 09/08/18 00:12 96 H 09/08/18 00:02 36.7 C 93 H 16 117/73 09/07/18 21:06 94 H 09/07/18 18:03 98 H 16 09/07/18 18:00 94 H 112/68 09/07/18 17:30 97 H 94/63 L 09/07/18 17:02 100 H 09/07/18 17:01 98 H 101/72 09/07/18 17:00 101 H 09/07/18 16:30 102 H 119/85 09/07/18 16:01 100 H 123/78 09/07/18 16:00 102 H 09/07/18 15:30 95 H 131/83 09/07/18 15:21 101 H 16 136/107 H 09/07/18 15:01 109 H 136/107 H 09/07/18 15:00 109 H 102 H 18 136/107 H 09/07/18 14:25 09/07/18 14:15 36.5 C 187 H 26 H 149/94 H Pulse Ox 09/08/18 14:00 94 09/08/18 13:50 95 09/08/18 13:40 99 09/08/18 13:33 98 09/08/18 11:18 93 09/08/18 07:52 95 09/08/18 04:43 95 09/08/18 00:12 09/08/18 00:02 94 09/07/18 21:06 93 09/07/18 18:03 09/07/18 18:00 95 09/07/18 17:30 94 09/07/18 17:02 95 09/07/18 17:01 93 09/07/18 17:00 94 09/07/18 16:30 96 09/07/18 16:01 93 09/07/18 16:00 96 09/07/18 15:30 99 09/07/18 15:21 95 09/07/18 15:01 100 09/07/18 15:00 100 09/07/18 14:25 98 09/07/18 14:15 96 Pain Intensity Left Hip: Pain Intensity: 2 Notes Mental Status: alert / awake / arousable Patient Amnestic to Procedure: Yes Nausea / Vomiting: adequately controlled Pain: adequately controlled Airway Patency, RR, SpO2: stable & adequate BP & HR: stable & adequate Hydration State: stable & adequate Neuraxial Anesthesia: was administered and sensory block is resolving Anesthetic Complications: no major complications apparent and Pt Satisfied with anesthetic care
--- NOTE | 2018-09-08 14:22 | XRay Report ---
XR hip LT min 2V CLINICAL HISTORY: Post-Operative implant position COMPARISON: 09/07/2018 DISCUSSION: 2 views are provided for interpretation. There is an internally fixated intertrochanteric left hip fracture with a femoral neck nail and interlocking medullary gilma. There is 12 mm of offset at the level of the femoral neck femoral shaft medially. There is a small amount of gas in the soft t issues consistent with recent surgery. There are overlying skin brenda. IMPRESSION: Internally fixated intertrochanteric left hip fracture. Electronically signed by: Claude Lane M.D. 09/08/2018 2:21 PM
--- NOTE | 2018-09-08 14:23 | Fluoroscopy Report ---
FL hip LT 2-3V CLINICAL HISTORY: LT HIP TROCH NAIL COMPARISON STUDY: 08/30/2018 FLUOROSCOPY TIME: 126 seconds. NUMBER OF FLUOROSCOPIC IMAGES: 6 FINDINGS: 6 intraoperative fluoroscopic spot images demonstrate internal fixation of intertrochanteri c left hip fracture with a femoral neck canal and interlocking medullary gilma. IMPRESSION: Internally fixated intertrochanteric left hip fracture. Electronically signed by: Claude Lane M.D. 09/08/2018 2:22 PM
[2018-09-08] MEDS ORDERED: NALOXONE HCL 0.4 MG/1 ML VIAL/CARP IV PRN (14:37)
--- NOTE | 2018-09-08 14:38 | Hospitalist Progress Note ---
Date of Service September 08, 2018 Assessment & Plan (1) Closed left femoral fracture: (2) SVT (supraventricular tachycardia): (3) COPD (chronic obstructive pulmonary disease): (4) Leukocytosis: (5) CKD (chronic kidney disease) stage 2, GFR 60-89 ml/min: (6) Anxiety: (7) Hyperlipidemia: (8) DVT prophylaxis: 62yo M w/ hx of COPD admitted on Sep 08, 2018 with left broken hip. Patient was in his usual state he fell on some ice at work and sustained a left intertrochanteic femur fracture. Closed left femoral fracture: - Orthopedics consulted, planned procedure today, - Pain control - NPO @ midnight in case of surgery he has history of CKD, SVT, mild emphysema, plus orthopedic procedures he will be in the moderate risk to have cardiopulmonary complications, discussed with patient about this, he understand and willing to take on a risks Had episode of SVT on admission which was broken with adenosine. Telemetry has been unremarkable, Continue electrolyte monitoring, and cardiac monitoring mild COPD exacerbation: Continue home inhalers, Continue 1 final day of steroids and antibiotics CKD (chronic kidney disease) stage 2, GFR 60-89 ml/min: In baseline, Anxiety, dyslipidemia, stable continue current medication, Continue pain control PT OT, postop, DVT prophylaxis, Subjective Generally feeling okay, feels pain when moved, no pain when no move in the left hip, No fever and chills denies chest pain, Review of Systems Constitutional: negative weakness, or fatigue Respiratory: no cough, sputum, wheezing, or dyspnea on exertion Cardiac: No chest pain, No orthopnea, No PND, No claudication, No palpitations , Abdomen: No pain, No nausea, No vomiting, No diarrhea, Musculoskeletal: No joint pain, No muscle pain, No swelling, No calf pain, No problem reported : No dysuria, No urinary frequency, No incontinence, No hematuria Neurologic: No paralysis, No weakness, No numbness/tingling, No vertigo, No balance problems Psychiatric: No depression symptoms, No anhedonism, No anxiety, No insomnia, Heme: No abnormal bleeding/bruising, No clotting problems, No swollen lymph nodes, No night sweats Skin: No rash, No itch, No new/changing skin lesions, No color change, No bleeding Physical Exam 2 Vital Signs (Past 24 Hours): Last Vital Signs Temp 36.5 C 01/29/19 14:10 Pulse 79 09/08/18 14:20 Resp 16 09/08/18 14:20 BP 120/69 09/08/18 14:20 Pulse Ox 95 09/08/18 14:20 Physical Exam: General Appearance: WD/WN, no apparent distress, Eyes: normal inspection, PERRL, EOMI, sclerae normal ENT: normal ENT inspection, hearing grossly normal, pharynx normal Neck: supple, no adenopathy, thyroid normal, no JVD, no carotid bruits, trachea midline Respiratory/Chest: chest non-tender, normal breath sounds, no respiratory distress, no accessory muscle use, breath sounds, rales, wheezing Cardiovascular: regular rate, rhythm, no JVD, no murmur Abdomen: normal bowel sounds, non tender, soft, no organomegaly, Extremities: left hip + hip abnormal to inpsection and + deformity, in the left side which is shorter and externally rotated, no pedal edema, no calf tenderness, normal capillary refill, pelvis stable, Neurologic/Psychiatric: sld teacher II-XII nml as tested, no motor/sensory deficits, alert, normal mood/affect, oriented x 3 Skin: normal color, warm/dry, no rash Lymphatic: no adenopathy Results & Data Laboratory Results Laboratory Results - last 24 hr 09/07/18 09/07/18 09/07/18 14:35 14:35 14:35 WBC 12.07 H RBC 4.60 L Hgb 15.0 Hct 43.3 MCV 94.1 MCH 32.6 MCHC 34.6 RDW Std Deviation 47.3 H RDW Coeff of Damon 13.7 Plt Count 289 MPV 9.4 Immature Gran % (Auto) 0.3 Neut % (Auto) 64.6 Lymph % (Auto) 26.3 [place] % (Auto) 8.5 Eos % (Auto) 0.1 Baso % (Auto) 0.2 Immature Gran # (Auto) 0.04 H Neut # (Auto) 7.78 H Lymph # (Auto) 3.18 [place] # (Auto) 1.03 H Eos # (Auto) 0.01 Baso # (Auto) 0.03 PT 10.1 INR 1.0 APTT 22.6 PTT Ratio 0.9 Sodium 135 L Potassium 4.3 Chloride 101 Carbon Dioxide 28 Anion Gap 6.0 BUN 24 H Creatinine 1.32 Est Cr Clr Drug Dosing 61.4 Est GFR ( Amer) 67.5 Est GFR (Non-Af Amer) 58.2 BUN/Creatinine Ratio 18.1 Glucose 93 POC Glucose Calcium 9.6 Magnesium 2.1 Total Bilirubin 0.5 AST 35 ALT 40 Alkaline Phosphatase 111 Troponin I < 0.015 Total Protein 8.1 Albumin 4.2 Globulin 3.9 Albumin/Globulin Ratio 1.1 TSH 1.210 Blood Type Antibody Screen 09/07/18 09/08/18 09/08/18 14:35 05:35 05:35 WBC 10.69 RBC 3.88 L Hgb 12.9 L Hct 36.9 L MCV 95.1 MCH 33.2 MCHC 35.0 RDW Std Deviation 47.3 H RDW Coeff of Damon 13.8 Plt Count 232 MPV 9.0 Immature Gran % (Auto) Neut % (Auto) Lymph % (Auto) [place] % (Auto) Eos % (Auto) Baso % (Auto) Immature Gran # (Auto) Neut # (Auto) Lymph # (Auto) [place] # (Auto) Eos # (Auto) Baso # (Auto) PT INR APTT PTT Ratio Sodium 134 L Potassium 4.3 Chloride 99 Carbon Dioxide 27 Anion Gap 8.0 BUN 23 H Creatinine 1.12 Est Cr Clr Drug Dosing 72.4 Est GFR ( Amer) 82.3 Est GFR (Non-Af Amer) 71.0 BUN/Creatinine Ratio 20.4 H Glucose 112 H POC Glucose Calcium 8.5 Magnesium 2.1 Total Bilirubin AST ALT Alkaline Phosphatase Troponin I Total Protein Albumin Globulin Albumin/Globulin Ratio TSH Blood Type O Positive Antibody Screen NEGATIVE 09/08/18 11:35 WBC RBC Hgb Hct MCV MCH MCHC RDW Std Deviation RDW Coeff of Damon Plt Count MPV Immature Gran % (Auto) Neut % (Auto) Lymph % (Auto) [place] % (Auto) Eos % (Auto) Baso % (Auto) Immature Gran # (Auto) Neut # (Auto) Lymph # (Auto) [place] # (Auto) Eos # (Auto) Baso # (Auto) PT INR APTT PTT Ratio Sodium Potassium Chloride Carbon Dioxide Anion Gap BUN Creatinine Est Cr Clr Drug Dosing Est GFR ( Amer) Est GFR (Non-Af Amer) BUN/Creatinine Ratio Glucose POC Glucose 100 H Calcium Magnesium Total Bilirubin AST ALT Alkaline Phosphatase Troponin I Total Protein Albumin Globulin Albumin/Globulin Ratio TSH Blood Type Antibody Screen
[2018-09-08 15:27] LABS: Magnesium 2.3 mg/dl (1.8-2.4); Phosphorus 4.4 mg/dl (2.5-4.9)
--- NOTE | 2018-09-08 18:03 | Orthopedic Progress Note ---
Date of Service September 08, 2018 Assessment & Plan (1) Closed fracture of left hip: Status post left hip cephalo-medullary nail -Ancef x24 -DVT prophylaxis Lovenox daily -Partial weightbearing left lower extremity -Physical therapy and occupational therapy when medically stable -A.m. labs -Postoperative x-ray demonstrates well aligned well fixed orthopedic implants, near anatomic alignment of fracture site. Subjective Post Operative Progress Note Patient seen sitting up in bed, comfortable, denies complaints, pain well controlled, no acute issues. Constitutional: as per Subjective / HPI Physical Exam 2 Vital Signs (Past 24 Hours): Last Vital Signs Temp 36.8 C 09/08/18 17:45 Pulse 103 H 09/08/18 17:45 Resp 16 09/08/18 17:45 BP 115/72 09/08/18 17:45 Pulse Ox 95 09/08/18 17:45 Physical Exam: LLE NVSI +EHL/FHL/TA/GS SILT grossly, +2 DP pulse, compartments soft NT, dressing cdi. Constitutional: WD/WN, vitals as above _ (1) Closed fracture of left hip Encounter type: initial encounter Fracture healing: Qualified Code(s): S72.002A - Fracture of unspecified part of neck of left femur, initial encounter for closed fracture
[2018-09-08] MEDS: OXYCODONE HCL IR 5 MG TAB (IMMEDIATE RELEASE) PO PRN (18:23)
[2018-09-08] MEDS: ATORVASTATIN 40 MG TAB PO SCH (21:31)
[2018-09-08] MEDS: NORTRIPTYLINE HCL 25 MG CAP PO SCH (21:31)
[2018-09-08] MEDS: METHOCARBAMOL 500 MG TABLET PO PRN (22:48)
[2018-09-09] MEDS: OXYCODONE HCL IR 5 MG TAB (IMMEDIATE RELEASE) PO PRN ×4 (05:05→19:28)
[2018-09-09] MEDS: HYDROmorphone INJ 0.5 MG/0.5 ML SYR IV PRN ×4 (05:06→23:56)
[2018-09-09 07:08] LABS: Basophils # (auto) 0.02 K/uL (0-0.2); Basophils % (auto) 0.2 %; Eosinophils # (auto) 0.03 K/uL (0-0.5); Eosinophils % (auto) 0.3 %; Hemoglobin 11.7 g/dL (14.0-18.0); Immature Granulocytes # (auto) 0.02 K/uL (0.00-0.02); Immature Granulocytes % (auto) 0.2 %; Lymphocytes # (auto) 2.09 K/uL (1.2-3.4); Lymphocytes % (auto) 24.1 %; Mean Corpuscular Hgb Conc 33.4 g/dL (32-36); Mean Corpuscular Volume 94.6 fL (80-100); Monocytes # (auto) 1.53 K/uL (0.11-0.59); Monocytes % (auto) 17.7 %; Neutrophils # (auto) 4.97 K/uL (1.4-6.5); Neutrophils % (auto) 57.5 %; Platelet Count 221 K/uL (130-400); RDW Coefficient of Variation 13.4 % (11.5-14.5); RDW Standard Deviation 46.5 fL (36.4-46.3); White Blood Count 8.66 K/uL (4.8-10.8)
[2018-09-09] MEDS: METHOCARBAMOL 500 MG TABLET PO PRN (07:10)
[2018-09-09 07:41] LABS: BUN Creatinine Ratio 15.4 (10-20); Creatinine Clr Calc Pharmacy 75.1 ml/min; Est GFR (Non-African American) 74.2; Potassium 4.2 mmol/L (3.5-5.1)
--- NOTE | 2018-09-09 08:13 | XRay Report ---
LEFT KNEE 2 VIEWS HISTORY: Left knee PAIN COMPARISON: None. FINDINGS: No acute fracture or dislocation. Prior internal fixation of a lateral tibial plateau fract ure with a single cannulated screw. The hardware is intact. No significant knee effusion. Mild thicke alessandro of the quadriceps tendon. A 2 cm lucent lesion within the distal shaft of the left femur. Howeve r, this was not present on yesterday's radiograph and therefore favors artifact. IMPRESSION: 1. No acute fracture or dislocation within the left knee. 2. Mild thickening of the distal quadriceps tendon suggestive of a tendinopathy. 3. Suggestion of a 2 cm lucent lesion within the distal shaft of left femur. However, this was not pr esent on yesterday's examination and therefore favors artifact. Electronically signed by: Jer Ordoñez M.D. 09/09/2018 8:11 AM
[2018-09-09] MEDS: ENOXAPARIN INJ 40 MG/0.4 ML SYR SQ SCH (08:39)
[2018-09-09] MEDS: CITALOPRAM 20 MG TAB PO SCH (08:39)
[2018-09-09] MEDS: TIOTROPIUM BROMIDE 5 PUFF/90 MCG INH INH SCH (08:39)
[2018-09-09] MEDS: BUDESONIDE/FORMOTEROL FUMARATE 160/4.5 60 PUFFS/INHALER INH SCH (08:39)
--- NOTE | 2018-09-09 09:02 | Orthopedic Progress Note ---
Date of Service September 09, 2018 Assessment & Plan (1) Closed fracture of left hip: Status post left hip cephalo-medullary nail POD#1 -Ancef x24 -DVT prophylaxis Lovenox daily -Partial weightbearing left lower extremity -Physical therapy and occupational therapy when medically stable -A.m. labs hgb 11.7 -Postoperative x-ray demonstrates well aligned well fixed orthopedic implants, near anatomic alignment of fracture site. Subjective Post Operative Progress Note Patient seen sitting up in bed, comfortable, denies complaints, pain well controlled, no acute issues overnight. Constitutional: as per Subjective / HPI Physical Exam 2 Vital Signs (Past 24 Hours): Last Vital Signs Temp 37.0 C 09/09/18 07:54 Pulse 100 H 09/09/18 07:54 Resp 18 09/09/18 07:54 BP 117/74 09/09/18 07:54 Pulse Ox 93 09/09/18 07:54 Physical Exam: LLE NVSI +EHL/FHL/TA/GS SILT grossly, +2 DP pulse, compartments soft NT, dressing cdi. Constitutional: WD/WN, vitals as above _ (1) Closed fracture of left hip Encounter type: initial encounter Fracture healing: Qualified Code(s): S72.002A - Fracture of unspecified part of neck of left femur, initial encounter for closed fracture
--- NOTE | 2018-09-09 12:48 | Hospitalist Progress Note ---
Date of Service September 09, 2018 Assessment & Plan (1) Closed left femoral fracture: (2) SVT (supraventricular tachycardia): (3) COPD (chronic obstructive pulmonary disease): (4) Leukocytosis: (5) CKD (chronic kidney disease) stage 2, GFR 60-89 ml/min: (6) Anxiety: (7) Hyperlipidemia: (8) DVT prophylaxis: 62yo M w/ hx of COPD admitted on Sep 08, 2018 with left hip fx Patient was in his usual state he fell on some ice at work and sustained a left intertrochanteic femur fracture. Closed left femoral fracture: Status post left hip cephalo-medullary nail, POD#1, recommend from orthopedic, DVT prophylaxis Lovenox daily, Partial weightbearing left lower extremity, Physical therapy and occupational therapy Left knee pain, likely arthritis, x-ray not unremarkable, currently resolved Had episode of SVT on admission which was broken with adenosine Upon admission, telemetry has been unremarkable, Continue electrolyte monitoring, and cardiac monitoring mild COPD exacerbation: Continue home inhalers, steroids and antibiotics has completed full course of treatment Given chronic kidney failure with elevated creatinine at 1.5, with history of CKD (chronic kidney disease) stage 2, Follow-up renal function, Gentle IV fluid, Avoid renal offensive medication Mild hyponatremia sodium 131 from 134, will follow up, Anxiety, dyslipidemia, stable continue current medication, Continue pain control PT OT, postop, DVT prophylaxis, Subjective Generally feeling okay, felt left knee pain this morning, When I interview with him, no more left knee pain, left hip pain fairly controlled 1 out of 10, However when trying to be up with therapist he was feeling significant left hip pain No fever and chills denies chest pain, Review of Systems Constitutional: negative weakness, or fatigue Respiratory: no cough, sputum, wheezing, or dyspnea on exertion Cardiac: No chest pain, No orthopnea, No PND, No claudication, No palpitations , Abdomen: No pain, No nausea, No vomiting, No diarrhea, Musculoskeletal: No joint pain, No muscle pain, No swelling, No calf pain, No problem reported : No dysuria, No urinary frequency, No incontinence, No hematuria Neurologic: No paralysis, No weakness, No numbness/tingling, Psychiatric: No depression symptoms, No anhedonism, No anxiety, No insomnia, Heme: No abnormal bleeding/bruising, No clotting problems, Skin: No rash, No itch, No new/changing skin lesions, No color change, No bleeding Physical Exam 2 Vital Signs (Past 24 Hours): Last Vital Signs Temp 36.8 C 09/09/18 11:03 Pulse 103 H 09/09/18 11:03 Resp 20 09/09/18 11:03 BP 126/73 09/09/18 11:03 Pulse Ox 94 09/09/18 11:03 Physical Exam: General Appearance: WD/WN, no apparent distress, Eyes: normal inspection, PERRL, EOMI, sclerae normal ENT: normal ENT inspection, hearing grossly normal, pharynx normal Neck: supple, no adenopathy, thyroid normal, no JVD, no carotid bruits, trachea midline Respiratory/Chest: chest non-tender, normal breath sounds, no respiratory distress, no accessory muscle use, breath sounds, rales, wheezing Cardiovascular: regular rate, rhythm, no JVD, no murmur Abdomen: normal bowel sounds, non tender, soft, no organomegaly, Extremities: Left hip S/P procedure, local in dress, looks good, left knee no limited range of motion local no erythema deformity, no pedal edema, no calf tenderness, normal capillary refill, pelvis stable, 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, no motor/sensory deficits, alert, normal mood/affect, oriented x 3 Skin: normal color, warm/dry, no rash Lymphatic: no adenopathy Results & Data Laboratory Results Laboratory Results - last 24 hr 09/08/18 09/09/18 09/09/18 14:55 06:51 06:51 WBC 8.66 RBC 3.70 L Hgb 11.7 L Hct 35.0 L MCV 94.6 MCH 31.6 MCHC 33.4 RDW Std Deviation 46.5 H RDW Coeff of Damon 13.4 Plt Count 221 MPV 9.0 Immature Gran % (Auto) 0.2 Neut % (Auto) 57.5 Lymph % (Auto) 24.1 [place] % (Auto) 17.7 Eos % (Auto) 0.3 Baso % (Auto) 0.2 Immature Gran # (Auto) 0.02 Neut # (Auto) 4.97 Lymph # (Auto) 2.09 [place] # (Auto) 1.53 H Eos # (Auto) 0.03 Baso # (Auto) 0.02 Sodium 131 L Potassium 4.2 Chloride 98 Carbon Dioxide 28 Anion Gap 5.0 BUN 17 Creatinine 1.08 Est Cr Clr Drug Dosing 75.1 Est GFR ( Amer) 86.0 Est GFR (Non-Af Amer) 74.2 BUN/Creatinine Ratio 15.4 Glucose 137 H Calcium 8.0 L Phosphorus 4.4 Magnesium 2.3
[2018-09-09] MEDS: SODIUM CHLORIDE 0.9% 500 ML IV SCH ×2 (13:33→19:30)
[2018-09-09] MEDS: NORTRIPTYLINE HCL 25 MG CAP PO SCH (20:08)
[2018-09-09] MEDS: ATORVASTATIN 40 MG TAB PO SCH (20:08)
[2018-09-10] MEDS: SODIUM CHLORIDE 0.9% 500 ML IV SCH ×2 (01:17→07:46)
[2018-09-10] MEDS: HYDROmorphone INJ 0.5 MG/0.5 ML SYR IV PRN (04:58)
[2018-09-10 06:38] LABS: Basophils # (auto) 0.02 K/uL (0-0.2); Basophils % (auto) 0.2 %; Eosinophils % (auto) 1.1 %; Hematocrit (blood only) 30.9 % (42-52); Hemoglobin 10.4 g/dL (14.0-18.0); Immature Granulocytes # (auto) 0.03 K/uL (0.00-0.02); Immature Granulocytes % (auto) 0.3 %; Lymphocytes # (auto) 1.75 K/uL (1.2-3.4); Mean Corpuscular Hgb Conc 33.7 g/dL (32-36); Mean Corpuscular Volume 94.2 fL (80-100); Mean Platelet Volume 9.3 fL (7.4-10.4); Monocytes # (auto) 1.47 K/uL (0.11-0.59); Monocytes % (auto) 16.8 %; Neutrophils # (auto) 5.39 K/uL (1.4-6.5); Neutrophils % (auto) 61.6 %; Platelet Count 220 K/uL (130-400); RDW Coefficient of Variation 13.4 % (11.5-14.5); RDW Standard Deviation 46.3 fL (36.4-46.3); Red Blood Count 3.28 M/uL (4.7-6.1); White Blood Count 8.76 K/uL (4.8-10.8)
[2018-09-10 07:04] LABS: Calcium 7.6 mg/dl (8.5-10.1); Creatinine Clr Calc Pharmacy 88.2 ml/min; Est GFR (African American) 104.4; Est GFR (Non-African American) 90.1
[2018-09-10 07:14] LABS: Phosphorus 2.6 mg/dl (2.5-4.9)
[2018-09-10] MEDS: CITALOPRAM 20 MG TAB PO SCH (07:45)
[2018-09-10] MEDS: ENOXAPARIN INJ 40 MG/0.4 ML SYR SQ SCH (07:45)
[2018-09-10] MEDS: TIOTROPIUM BROMIDE 5 PUFF/90 MCG INH INH SCH (07:46)
[2018-09-10] MEDS: BUDESONIDE/FORMOTEROL FUMARATE 160/4.5 60 PUFFS/INHALER INH SCH (07:46)
--- NOTE | 2018-09-10 08:15 | Orthopedic Progress Note ---
Date of Service September 10, 2018 Assessment & Plan (1) Closed fracture of left hip: Status post left hip cephalo-medullary nail POD#2 -Ancef x24 -DVT prophylaxis Lovenox daily -Partial weightbearing left lower extremity -Physical therapy and occupational therapy when medically stable -A.m. labs hgb 10.4 -Postoperative x-ray demonstrates well aligned well fixed orthopedic implants, near anatomic alignment of fracture site. Subjective Post Operative Progress Note Patient seen sitting up in bed, comfortable, denies complaints, pain well controlled, no acute issues overnight, improvement with pain since yesterday. Constitutional: as per Subjective / HPI Physical Exam 2 Vital Signs (Past 24 Hours): Last Vital Signs Temp 36.4 C L 09/10/18 07:57 Pulse 103 H 09/10/18 07:57 Resp 18 09/10/18 07:57 BP 134/70 09/10/18 07:57 Pulse Ox 91 09/10/18 07:57 Physical Exam: LLE NVSI +EHL/FHL/TA/GS SILT grossly, +2 DP pulse, compartments soft NT, dressing cdi. _ (1) Closed fracture of left hip Encounter type: initial encounter Fracture healing: Qualified Code(s): S72.002A - Fracture of unspecified part of neck of left femur, initial encounter for closed fracture
--- NOTE | 2018-09-10 09:24 | Operative Report ---
Post Operative Report Pre & Post Diagnosis Operation Date: 09/08/18 08:50 Pre-Op Diagnosis: Left Intertrochanteric Femur Fracture Post-Op Diagnosis: Left Intertrochanteric Femur Fracture Procedure Operation Date: 09/08/18 08:50 Actual Procedures p Trochanteric Nailing Left Hip(Left) - Rene Del Rio DO Surgeon Rene Del Rio DO [employer] Quiller Tender none Estimated Blood Loss 55 Findings Consistent with Post-Op Diagnosis Specimens none Anesthesia Type Spinal MAC Complications none Disposition Disposition: Recovery Room Indications The patient is a 62 yo male with displaced left intertrochanteric hip fracture sustained after a fall from standing height. The patient was medically stabilized on 09/08/18. I indicated the patient for left hip cephalomedullary nail. The patient was informed of the risks and benefits of surgery, which include but not limited to infection, bleeding, blood clots, damage to nerves, vessels, bone and soft tissue, dislocation, leg length discrepancy, malunion, nonunion, failure of the implants, need for additional surgery and . The patient collectively chose to proceed with surgical intervention and informed consent was obtained. Description of Procedure Following induction of adequate spinal anesthesia, the patient was placed on the fracture table. The right leg was placed in the well leg burris and the left leg in the traction leg burris. All bony prominences were protected. Utilizing c-arm fluoroscopy closed reduction of the fracture was performed. Once satisfied with fracture reduction the left hip was prepped and draped in the usual sterile manner. A time out was performed and site verified. The incision was made from the tip of the greater trochanter proximally. Subcutaneous tissue was sharply dissected to the tip of the greater trochanter, electrocautery used for hemostasis. Under fluoroscopic guidance the drill tipped guidewire was inserted at the tip of the greater trochanter and advanced into the medullary canal. Utilizing the intramedullary drill the guidewire was overdrilled with tissue protector attached. A 9 mm short Synthes TFN was inserted and impacted into position and confirmed by c-arm fluoroscopy. The nail was hanging up distally in the canal prior to being completed seated so the decision was made to ream the canal prior to insertion. The nail was removed and long guide wire inserted into the canal. Sequential reaming of the canal with flexible reamers was performed starting at 9 and carried up to 10.5. The 9mm short synthes TFN was then reinserted under c-arm fluoroscopy to the appropriate level. Next the aiming arm was attached to the insertion handle. A incision was made and carried down through subcutaneous tissues to bone. The blade guide sleeve was inserted and secured down to bone. The guide wire was passed across the fracture site to the tip of the femoral head, position was confirmed in the AP and lateral planes utilizing c-arm fluoroscopy. The guide pin was measured and the 11.0mm drill bit passed over the guide pin to open lateral cortex followed by a 6.0mm/10.0mm cannulated reamer to a depth of 115mm. Next the helical blade was inserted and locked proximally. Traction was released and interfragmentary compression applied. Distally a stab incision was made in the skin and carried down to bone. The triple trocar assembly was inserted into the aiming guide to bone. Utilizing a 4.0mm drill, both cortices were drilled. The nail was locked distally using a single 4.9mm x 38 mm locking bolt. The aiming guide was removed at this time and final radiographs were obtained utilizing c-arm fluoroscopy to confirm overall position and fracture reduction. Incisions were irrigated with copious amounts of sterile saline solution. Subcutaneous tissue were injected utilizing .5% marcaine with epi. Deep closure was performed using #1 Vicryl followed by 2-0 Vicryl for subcutaneous tissues and brenda in the skin. Sterile dressing, Xeroform gauze, 4x4s and tegaderm were applied. The patient tolerated the procedure well and was transported to the PACU in stable condition. I attest to the content of the Intraoperative Record and any orders documented therein. Any exceptions are noted below.
[2018-09-10] MEDS: OXYCODONE HCL IR 5 MG TAB (IMMEDIATE RELEASE) PO PRN ×2 (09:52→15:31)
[2018-09-10] MEDS ORDERED: OXYCODONE HCL IR 5 MG TAB (IMMEDIATE RELEASE) PO PRN (10:45)
[2018-09-10] MEDS: POLYETHYLENE (MIRALAX) 17 GM PACK PO PRN (10:45)
[2018-09-10] MEDS ORDERED: MAGNESIUM CITRATE 296 ML/BTL PO PRN (10:46)
--- NOTE | 2018-09-10 15:42 | Hospitalist Progress Note ---
Date of Service September 10, 2018 Assessment & Plan (1) Closed left femoral fracture: (2) SVT (supraventricular tachycardia): (3) COPD (chronic obstructive pulmonary disease): (4) Leukocytosis: (5) CKD (chronic kidney disease) stage 2, GFR 60-89 ml/min: (6) Anxiety: (7) Hyperlipidemia: (8) DVT prophylaxis: 62yo M w/ hx of COPD admitted on Sep 08, 2018 with left hip fx Patient was in his usual state he fell on some ice at work and sustained a left intertrochanteic femur fracture. Closed left femoral fracture: Status post left hip cephalo-medullary nail, POD#2, ortho recommend DVT prophylaxis Lovenox daily, Partial weightbearing left lower extremity, Physical therapy and occupational therapy Because of the significant pain, I encourage patient to somehow take pain medicine 30 minutes before the therapy, encouraged to increase activities to overcome the pain, Left knee pain, likely arthritis, x-ray not unremarkable, currently resolved Had episode of SVT on admission which was broken with adenosine Upon admission, telemetry has been unremarkable, Continue electrolyte monitoring, and cardiac monitoring mild COPD exacerbation: No shortness of place for now, Continue home inhalers, steroids and antibiotics has completed full course of treatment Acute on chronic kidney failure with elevated creatinine at 1.5 yesterday today is improved creatinine at 1.4, Continue follow-up renal function,, Discontinue gentle IV fluid, Avoid renal offensive medication Mild hyponatremia sodium 131 from 134, will follow up, Anxiety, dyslipidemia, stable continue current medication, Continue pain control PT OT, postop, DVT prophylaxis, Discontinue Mederos catheter, increase up and walk, patient has had HSR ready to go, however patient has significant pain today I not feel comfortable to discharge him, however to discuss about the care plan and discharge plan, discontinue IV Dilaudid, he was on oral pain medicine as much as possible, and Miralax treatment for constipation, Subjective Nursing staff report patient has significant pain, not able to do any therapy and required IV Dilaudid pain medicine When I interview with him, he reported left hip pain, and afraid to be moving around and opted to do therapy because of pain No fever and chills denies chest pain, Review of Systems Constitutional: negative weakness, or fatigue Respiratory: no cough, sputum, wheezing, or dyspnea on exertion Cardiac: No chest pain, No orthopnea, No PND, No claudication, No palpitations , Abdomen: No pain, No nausea, No vomiting, No diarrhea, Musculoskeletal: No swelling, No calf pain, No problem reported : No dysuria, No urinary frequency, No incontinence, No hematuria Neurologic: No paralysis, No weakness, No numbness/tingling, Psychiatric: No depression symptoms, No anhedonism, No anxiety, No insomnia, Heme: No abnormal bleeding/bruising, No clotting problems, Skin: No rash, No itch, No new/changing skin lesions, No color change, No bleeding Physical Exam 2 Vital Signs (Past 24 Hours): Last Vital Signs Temp 37.4 C 09/10/18 14:57 Pulse 98 H 09/10/18 14:57 Resp 18 09/10/18 14:57 BP 135/73 09/10/18 14:57 Pulse Ox 93 09/10/18 14:57 Physical Exam: General Appearance: WD/WN, no apparent distress, Eyes: normal inspection, PERRL, EOMI, sclerae normal ENT: normal ENT inspection, hearing grossly normal, pharynx normal Neck: supple, no adenopathy, thyroid normal, no JVD, no carotid bruits, trachea midline Respiratory/Chest: chest non-tender, normal breath sounds, no respiratory distress, no accessory muscle use, breath sounds, rales, wheezing Cardiovascular: regular rate, rhythm, no JVD, no murmur Abdomen: Mederos catheter in place, normal bowel sounds, non tender, soft, no organomegaly, Extremities: Left hip S/P procedure, local in dress, looks good, left knee no limited range of motion local no erythema deformity, no pedal edema, no calf tenderness, normal capillary refill, pelvis stable, 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, no motor/sensory deficits, alert, normal mood/affect, oriented x 3 Skin: normal color, warm/dry, no rash Lymphatic: no adenopathy Results & Data Laboratory Results Laboratory Results - last 24 hr 09/10/18 09/10/18 05:55 05:55 WBC 8.76 RBC 3.28 L Hgb 10.4 L Hct 30.9 L MCV 94.2 MCH 31.7 MCHC 33.7 RDW Std Deviation 46.3 RDW Coeff of Damon 13.4 Plt Count 220 MPV 9.3 Immature Gran % (Auto) 0.3 Neut % (Auto) 61.6 Lymph % (Auto) 20.0 [place] % (Auto) 16.8 Eos % (Auto) 1.1 Baso % (Auto) 0.2 Immature Gran # (Auto) 0.03 H Neut # (Auto) 5.39 Lymph # (Auto) 1.75 [place] # (Auto) 1.47 H Eos # (Auto) 0.10 Baso # (Auto) 0.02 Sodium 130 L Potassium 4.0 Chloride 96 L Carbon Dioxide 28 Anion Gap 6.0 BUN 14 Creatinine 0.92 Est Cr Clr Drug Dosing 88.2 Est GFR ( Amer) 104.4 Est GFR (Non-Af Amer) 90.1 BUN/Creatinine Ratio 15.0 Glucose 110 H Calcium 7.6 L Phosphorus 2.6 D Magnesium 2.0
[2018-09-10] MEDS: NORTRIPTYLINE HCL 25 MG CAP PO SCH (21:31)
[2018-09-10] MEDS: ATORVASTATIN 40 MG TAB PO SCH (21:31)
[2018-09-11] MEDS: OXYCODONE HCL IR 5 MG TAB (IMMEDIATE RELEASE) PO PRN ×3 (00:18→18:20)
[2018-09-11 07:10] LABS: Basophils # (auto) 0.02 K/uL (0-0.2); Basophils % (auto) 0.3 %; Eosinophils # (auto) 0.16 K/uL (0-0.5); Eosinophils % (auto) 2.1 %; Hematocrit (blood only) 31.9 % (42-52); Immature Granulocytes # (auto) 0.03 K/uL (0.00-0.02); Immature Granulocytes % (auto) 0.4 %; Lymphocytes # (auto) 1.49 K/uL (1.2-3.4); Lymphocytes % (auto) 19.8 %; Mean Corpuscular Hgb Conc 34.5 g/dL (32-36); Mean Corpuscular Volume 93.5 fL (80-100); Mean Platelet Volume 8.8 fL (7.4-10.4); Monocytes # (auto) 1.11 K/uL (0.11-0.59); Monocytes % (auto) 14.8 %; Neutrophils # (auto) 4.71 K/uL (1.4-6.5); Neutrophils % (auto) 62.6 %; Platelet Count 250 K/uL (130-400); RDW Coefficient of Variation 13.3 % (11.5-14.5); RDW Standard Deviation 45.8 fL (36.4-46.3); Red Blood Count 3.41 M/uL (4.7-6.1); White Blood Count 7.52 K/uL (4.8-10.8)
[2018-09-11 07:49] LABS: BUN Creatinine Ratio 13.3 (10-20); Calcium 7.8 mg/dl (8.5-10.1); Creatinine Clr Calc Pharmacy 83.6 ml/min; Est GFR (African American) 97.9; Est GFR (Non-African American) 84.5; Magnesium 2.5 mg/dl (1.8-2.4); Potassium 4.2 mmol/L (3.5-5.1)
[2018-09-11 07:50] LABS: Phosphorus 2.6 mg/dl (2.5-4.9)
[2018-09-11] MEDS: ENOXAPARIN INJ 40 MG/0.4 ML SYR SQ SCH (07:56)
[2018-09-11] MEDS: CITALOPRAM 20 MG TAB PO SCH (07:56)
--- NOTE | 2018-09-11 07:56 | Orthopedic Progress Note ---
Date of Service September 11, 2018 Assessment & Plan (1) Closed fracture of left hip: Status post left hip cephalo-medullary nail POD#3 -DVT prophylaxis Lovenox daily -Partial weightbearing left lower extremity -Physical therapy and occupational therapy when medically stable -A.m. labs hgb 11 Plan for dc to [facility] today per Med service. Ortho will sign off at this time. Instructions placed in EMR Discharge Subjective POD 3 s/p Left TFN Pt lying in bed. Awake, alert. States he's having anterior thigh pain off and on. Discussed this was normal secondary to surgery and would resolve over time. No other complaints. Denies SOB, CP, LH. Planning to go to [facility] today. Physical Exam 2 Vital Signs (Past 24 Hours): Last Vital Signs Temp 36.5 C 09/11/18 06:52 Pulse 96 H 09/11/18 06:52 Resp 20 09/11/18 06:52 BP 129/75 09/11/18 06:52 Pulse Ox 91 09/11/18 06:52 Physical Exam: Thigh with mild swelling normal for surgery. Dressings C/D/I. Calves are soft,NT. NV intact. Toes mobile. _ (1) Closed fracture of left hip Encounter type: initial encounter Fracture healing: Qualified Code(s): S72.002A - Fracture of unspecified part of neck of left femur, initial encounter for closed fracture
[2018-09-11] MEDS: TIOTROPIUM BROMIDE 5 PUFF/90 MCG INH INH SCH (07:57)
[2018-09-11] MEDS: BUDESONIDE/FORMOTEROL FUMARATE 160/4.5 60 PUFFS/INHALER INH SCH (07:57)
[2018-09-11] MEDS: POLYETHYLENE (MIRALAX) 17 GM PACK PO PRN (10:42)
--- NOTE | 2018-09-11 14:59 | Discharge Summary ---
Date of Service September 11, 2018 Admission HPI Per Admitting Provider 62yo M w/ hx of COPD who presents for left broken hip. Patient was in his usual state of health apart from a mild COPD exacerbation when he fell on some ice at work and sustained a left intertrochanteic femur fracture. Per patient, he did not have any prodrome, dizziness, or other symptoms and just slipped. He was taking small steps, but still wasn't able to catch himself and had immediate pain on impact. A coworker called the ambulance. He reports he has had some extra sputum production in the last week, and has been on a course of azithromycin and steroids. He is on day 6 for this. Otherwise, is in his normal state of health and denies fevers/chills, chest pain , shortness of breath, abdominal pain, nausea, or vomiting. Principal Diagnosis no Discharge Data Allergies Allergy/AdvReac Type Severity Reaction Status Date / Time No Known Allergies Allergy Unknown Verified 09/07/18 15:14 Consultations 09/07/18 15:29 ED Decision to Admit Stat 09/07/18 18:48 Consult Case Management - Discharge Planning Routine Consult Orthopedic Surgery Routine 09/08/18 14:37 Consult Case Management - Discharge Planning Routine Procedures Performed Operation Date: 09/08/18 08:50 Actual Procedures p Trochanteric Nailing Left Hip(Left) - Rene Del Rio DO Ordered Studies 09/08/18 11:30 FL fluoroscopy <1hr Routine FL hip LT 2-3V Routine Hospital Course (1) Closed left femoral fracture: (2) SVT (supraventricular tachycardia): (3) COPD (chronic obstructive pulmonary disease): (4) Leukocytosis: (5) CKD (chronic kidney disease) stage 2, GFR 60-89 ml/min: (6) Anxiety: (7) Hyperlipidemia: (8) DVT prophylaxis: 62yo M w/ hx of COPD admitted on Sep 08, 2018 with left hip fx Patient was in his usual state he fell on some ice at work and sustained a left intertrochanteic femur fracture. Closed left femoral fracture: Status post left hip cephalo-medullary nail, POD#3, ortho recommend DVT prophylaxis Lovenox daily, Partial weightbearing left lower extremity, Physical therapy and occupational therapy Because of was having the significant pain, I encouraged patient to somehow take pain medicine 30 minutes before the therapy, encouraged to increase activities to overcome the pain, today patient pain is better controlled, encouraged him to try activity as much as possible Left knee pain, likely arthritis, x-ray not unremarkable, currently resolved Had episode of SVT on admission which was broken with adenosine Upon admission, telemetry has been unremarkable, Continue electrolyte monitoring, and cardiac monitoring mild COPD exacerbation: No shortness of place for now, Continue home inhalers, steroids and antibiotics has completed full course of treatment Acute on chronic kidney failure with elevated creatinine at 1.5 yesterday today is improved creatinine at 1.4, Continue follow-up renal function,, Discontinue gentle IV fluid, Avoid renal offensive medication Mild hyponatremia sodium 131 from 134, will follow up, Anxiety, dyslipidemia, stable continue current medication, Mederos catheter, increase up and walk, discharge to [facility] rehab again Upon discharge today, patient reported pain is better controlled no complaints he reported mnild left hip pain, and afraid to be moving around and opted to do therapy because of pain ursing staff report patient has significant pain, not able to do any therapy and required IV Dilaudid pain medicine When I interview with him, he reported left hip pain, and afraid to be moving around and opted to do therapy because of pain No fever and chills denies chest pain, Review of Systems Constitutional: negative weakness, or fatigue Respiratory: no cough, sputum, wheezing, or dyspnea on exertion Cardiac: No chest pain, No orthopnea, No PND, No claudication, No palpitations , Abdomen: No pain, No nausea, No vomiting, No diarrhea, Musculoskeletal: No swelling, No calf pain, No problem reported : No dysuria, No urinary frequency, No incontinence, No hematuria Neurologic: No paralysis, No weakness, No numbness/tingling, Psychiatric: No depression symptoms, No anhedonism, Heme: No abnormal bleeding/bruising, No clotting problems, Skin: No rash, No itch, No new/changing skin lesions, Physical Exam upon discahrging General Appearance: WD/WN, no apparent distress , Eyes: normal inspection, PERRL, EOMI, sclerae normal ENT: normal ENT inspection, hearing grossly normal, pharynx normal Neck: supple, no adenopathy, thyroid normal, no JVD, no carotid bruits, trachea midline Respiratory/Chest: chest non-tender, normal breath sounds, no respiratory distress, no accessory muscle use, breath sounds, rales, wheezing Cardiovascular: regular rate, rhythm, no JVD, no murmur Abdomen: Mederos catheter in place, normal bowel sounds, non tender, soft, no organomegaly, Extremities: Left hip S/P procedure, local in dress, looks good, left knee no limited range of motion local no erythema deformity, no pedal edema, no calf tenderness, normal capillary refill, pelvis stable, 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, no motor/sensory deficits, alert, normal mood/affect, oriented x 3 Skin: normal color, warm/dry, no rash Lymphatic: no adenopathy No fever and chills denies chest pain, Review of Systems Constitutional: negative weakness, or fatigue Respiratory: no cough, sputum, wheezing, or dyspnea on exertion Cardiac: No chest pain, No orthopnea, No PND, No claudication, No palpitations , Abdomen: No pain, No nausea, No vomiting, No diarrhea, Musculoskeletal: No swelling, No calf pain, No problem reported : No dysuria, No urinary frequency, No incontinence, No hematuria Neurologic: No paralysis, No weakness, No numbness/tingling, Psychiatric: No depression symptoms, No anhedonism, No anxiety, No insomnia, Heme: No abnormal bleeding/bruising, No clotting problems, Skin: No rash, No itch, No new/changing skin lesions, No color change, No bleeding Physical Exam exam upon discharge general Appearance: WD/WN, no apparent distress, Eyes: normal inspection, PERRL, EOMI, sclerae normal ENT: normal ENT inspection, hearing grossly normal, pharynx normal Neck: supple, no adenopathy, thyroid normal, no JVD, no carotid bruits, trachea midline Respiratory/Chest: chest non-tender, normal breath sounds, no respiratory distress, no accessory muscle use, breath sounds, rales, wheezing Cardiovascular: regular rate, rhythm, no JVD, no murmur Abdomen: Mederos catheter in place, normal bowel sounds, non tender, soft, no organomegaly, Extremities: Left hip S/P procedure, local in dress, looks good, left knee no limited range of motion local no erythema deformity, no pedal edema, no calf tenderness, normal capillary refill, pelvis stable, 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, no motor/sensory deficits, alert, normal mood/affect, oriented x 3 Skin: normal color, warm/dry, no rash Lymphatic: no adenopathy Total Time Total Time Spent Total Time Spent (In Minutes): 35min Total Time Includes: Examination of the Patient, Discharge Planning, Medication Reconciliation and Communication With Other Providers Discharge Plan Discharge Items Patient Disposition: Transfer Inpatient Rehab Fac Reason For Visit: LEFT HIP FRACTURE Discharge Diagnosis: Closed left femoral fracture Discharge Goals: Decrease discomfort, Diagnostic testing, Improve disease control and Improve function Activity: Per 'Additional Instructions' section Weightbearing: Left partial Weightbearing Comment: partial weightbearing with walker Non-emergency contact: Primary Care Provider and Surgeon Call non-emergency contact if: you have any medication questions Diet: Heart Healthy Addtl Provider Instructions: you have Closed left femoral fracture: Status post left hip cephalo-medullary nail, POD#3, ortho recommend DVT prophylaxis Lovenox daily, Partial weightbearing left lower extremity, Physical therapy and occupational therapy mild COPD exacerbation, Continue home inhalers, Acute on chronic kidney failureis better Continue follow-up renal function with PCP Miralax treatment for constipation, you need to follow up with your primary care physician in 1 week, - take medication as instructed, never overdose or any misuse, or take with alcohol, because misuse of medicine may cause organ damage or , call me , or your primary care physician if have questions of discharge medicaitons. - call your primary care physician, or go to local emergency room if has any fever/chill, chest pain, shortness of breathing, nausea/vomiting/abdominal pain , facial droop/slurry speech/local weakness, or if has any questions. - fall precaution - diet as instructed - you need to follow up with your subspecialist, such as Dr. Abrams [facility] [place] INSTRUCTIONS: HIP FRACTURE INSTRUCTIONS SELF CARE INSTRUCTIONS: A. You are to ambulate with a walker or crutches for approximately 6 weeks. B. You are PARTIAL WEIGHT BEARING on your operative lower extremity for at least 6 weeks. C. Wear low heeled shoes with non-slip soles D. Be sure that your floors are free of things that could trip you throw rugs, electrical cords, and small objects. Avoid wet and waxed floors, especially with crutches/walker/cane. E. Try to walk several times a day with rest periods between. F. You may shower 48 hours after surgery and get the incision area wet, but DO NOT soak or submerge incision area in water. (No baths, swimming pools, hot tubs ) G. You may have a large, band-aid like dressing over your incision (Aquacel). This will remain on your incision for 7 days, and then can be removed. You CAN shower with this on. If incision is leaking through the dressing, please call the office . H. Do NOT apply soap or any ointment/lotions directly over incision. I. You may use ice as needed to operative site. SPECIAL CARE INSTRUCTIONS: VERY IMPORTANT TO READ AND REVIEW A. You may be at risk for phlebitis or blood clots. a. Wear surgical stockings (REKHA hose) for 2 weeks after surgery to improve circulation and reduce swelling. b. Take LOVENOX 40mg SQ daily for 4 weeks or as directed. This is your blood thinner. c. If you are on Coumadin- you will have daily/weekly blood work to monitor your levels. This will be done by either your family physician/ clin nurse (if you are on Coumadin chronically) versus your orthopedic surgeon. Expect a phone call the day of or the day after your blood work is drawn to adjust your dose accordingly. B. There are a few signs you need to watch for after you are home. Call [facility] at [phone] if you experience any of the following: a. If you have a temperature of 101 degrees or higher. b. Sudden increase in pain in your hip not relieved by rest or pain medication. c. Any fluid or drainage from the incision; redness of the incision. d. Shortness of breath or chest pain. C. Call your physician if: a. Temperature is greater than 101 degrees (F). b. Pain is not relieved by prescribed pain medications. c. Increase drainage or redness from incision. d. Unanswered questions or concerns. D. Pain Medication: a. You will be prescribed pain medication upon discharge that should last till your first post-operative appointment. b. If you experience nausea and/or skin rash, discontinue this medication and contact our office for an alternative medication. c. Caution- narcotic pain medication can cause constipation. FOLLOW UP VISIT: Please call [facility] at [phone] to schedule a follow up appointment 10-14 days from the date of your surgery date with Dr Del Rio. Prescriptions: New polyethylene glycol 3350 [Miralax] 17 gram Powder In Packet 17 g PO DAILY PRN (Reason: constipation) 5 Days Qty: 5 RF: 0 oxycodone 5 mg Tablet 5 mg PO Q4H PRN (Reason: pain<5/10) 3 Days Qty: 5 RF: 0 oxycodone 5 mg Tablet 10 mg PO Q6 PRN (Reason: pain>5/10) 3 Days Qty: 5 RF: 0 enoxaparin 40 mg/0.4 mL Syringe 40 mg subcut Q24H 42 Days Qty: 16.8 RF: 0 Continue multivitamin Tablet 1 tab PO QAM RF: 0 atorvastatin 40 mg Tablet 40 mg PO HS RF: 0 ipratropium-albuterol 0.5 mg-3 mg(2.5 mg base)/3 mL Solution For Nebulization 3 ml INHALATION QID RF: 0 cod liver oil Capsule 2 cap PO QAM RF: 0 ibuprofen 200 mg Capsule 400 mg PO QAM RF: 0 nortriptyline 25 mg Capsule 25 mg PO HS RF: 0 citalopram 20 mg Tablet 20 mg PO QAM RF: 0 ascorbic acid (vitamin C) [Vitamin C] 500 mg Tablet 500 mg PO QAM RF: 0 saw palmetto 500 mg Capsule 1,000 mg PO QAM RF: 0 albuterol sulfate [Ventolin HFA] 90 mcg/actuation Hfa Aerosol Inhaler 2 puff INHALATION Q4H PRN (Reason: Shortness Of Breath Or Wheezing) RF: 0 ferrous sulfate 325 mg (65 mg iron) Tablet,Delayed Release (Dr/Ec) 325 mg PO QAM RF: 0 budesonide-formoterol [Symbicort] 160-4.5 mcg/actuation Hfa Aerosol Inhaler 2 puff INHALATION QAM RF: 0 budesonide 1 mg/2 mL Suspension For Nebulization 1 mg INHALATION BID RF: 0 potassium chloride 20 mEq Tablet Extended Release 20 meq PO QAM RF: 0 tiotropium bromide [Spiriva Respimat] 1.25 mcg/actuation Mist 2 puff INHALATION QAM RF: 0 Discontinued azithromycin [Zithromax Z-Scout] 250 mg Tablet 250 mg PO QAM RF: 0 methylprednisolone 4 mg Tablet 4 mg PO QAM RF: 0 Stand-Alone Forms: [facility] Discharge Orders: Discharge Order (Routine); Ordered 09/11/18 Ordered By: Richard Dias Skilled Items Patient informed of condition?: Yes DNR: No Discharge Level of Care: Acute rehab Communicable Disease: No Discharge Prognosis: Stable Admission Data Admit Date/Time: 09/07/18 16:48 Attending Provider: Richard Dias Admit Provider: Ladarius Ulloa Primary Care Provider: Neto Herrera Other Providers: Jun Brunner Weldon J. Service: Telemetry Medical Other Interventions: Discharge Summary Assessment (RN) Last Done: 09/11/18 12:24
== END 2018-09-11 18:50 | DRG 481 ==
LOC: ED 14:19 → 2N 16:48 → SUATTDRO 16:48 → 2N 18:03